=== PATIENT | male | born 1950 | race Caucasian/White ===

== ENCOUNTER 2022-03-08 01:52 | Emergency (ER) | payer MEDICARE, OTHER, SELFPAY ==
[2022-03-08 01:56] VITALS: BP 176/103; PULSE 72; RESP 18; TEMP 36.4; O2SAT 100; BMI 27.4
[2022-03-08 02:16] VITALS: BP 181/95; PULSE 71; RESP 16
[2022-03-08 02:20] LABS: Basophils % 0.3 %; Eosinophils # 0.1 10^3/uL (0.0-0.8); Eosinophils % 1.5 %; Hematocrit 45.3 % (42.0-52.0); Hemoglobin 15.8 g/dL (11.7-16.6); Lymphocytes # 1.7 10^3/uL (0.8-4.8); Lymphocytes % 18.2 %; Mean Corpuscular HGB Conc 34.9 g/dL (30.0-36.0); Mean Corpuscular Hemoglobin 32.1 pg (28.0-34.0); Mean Corpuscular Volume 92.1 fl (80-94); Mean Platelet Volume 9.2 fL (7.4-10.4); Monocytes # 0.6 10^3/uL (0.2-0.9); Neutrophils # 6.65 10^3/uL (1.8-7.7); Neutrophils % 72.8 %; Nucleated Red Blood Cells % 0 %; Platelet Count 238 10^3/cmm (130-400); Red Blood Count 4.92 10^6/uL (4.1-5.3); Red Cell Distribution Width 12.7 % (12.1-15.1); White Blood Count 9.1 10^3/uL (4.0-10.0)
--- NOTE | 2022-03-08 02:32 | ED_ITS ---
HPI - Abdominal Pain General: Chief Complaint: Abdominal Pain Stated Complaint: Back and ABD Pain Time Seen by Provider: 03/08/22 02:09 Source: patient and family History of Present Illness: 71-year-old male complaining of epigastric discomfort, after lying down tonight to go to bed. He is nauseated with the discomfort. No vomiting. No diarrhea. No fever. No shortness of breath. No diaphoresis. He has had this kind of pain before, and stayed in the hospital he says a couple of years ago, with no findings. He states that earlier, there was a line that he could feel along his right upper quadrant, but this is now improved. MD elicited complaint: abdominal pain Pertinent past history: other Onset (ago): hour(s) Pain Consistency: constant Location: Epigastric and RUQ Quality: cramping and stabbing Radiation: back Migration to: no migration Exacerbating factors: movement Relieving factors: nothing Associated Symptoms: Reports nausea; Denies anorexia, belching, bloating, change in bowel habits, chills, diarrhea, dyspepsia, fever(s), hematemesis and vomiting Review of Systems Const: Denies: fever(s) or chills Eyes: Denies: change in vision ENMT: Denies: throat pain Card: Denies: chest pain or palpitations Resp: Denies: dyspnea, productive cough, non-productive cough or wheezing GI: Reports: nausea; Denies: vomiting, hematemesis, diarrhea, bloating, belching or change in bowel habits Skin/Breast: Denies: rash Neuro: Denies: headache(s), weakness in extremities, dizziness or confusion Physical Exam Const: COMMON NORMALS: no acute distress GENERAL APPEARANCE: cooperative; not frail appearing HENMT: COMMON NORMALS: normocephalic and atraumatic HEAD & SCALP: normocephalic and atraumatic Eye: COMMON NORMALS: Equal, round and reactive pupils present and EOMs intact bilaterally PUPIL: Yes Equal, round and reactive pupils present Neck/C-Spine: GENERAL: Yes trachea midline Chest: COMMONS NORMALS: normal inspection of the chest CHEST: Yes Symmetrical chest wall rise Resp: COMMON NORMALS: normal respiratory effort, No use of accessory muscles and clear to auscultation bilaterally AUSCULTATION: clear to auscultation bilaterally Cardio: COMMON NORMALS: regular rate and regular rhythm RATE: regular rate RHYTHM: regular rhythm GI: COMMON NORMALS: Normal to inspection, nondistended, normoactive bowel sounds present and Soft to palpation PALPATION: Yes Soft to palpation and Yes Tenderness to palpation present (GI) Details: RUQ : COMMON NORMALS: Yes normal external exam Extremity: COMMON NORMALS: no pedal edema Neuro: DELVIS COMA SCALE: document GCS findings [place] coma scale eye opening: Spontaneous [place] coma scale verbal response: Orientated [place] coma scale motor response: Obey commands [place] coma scale total score: 15 Course Consultations: Consultation #1: Jennifer, 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 Vital Signs: Vital signs: Vital Signs Temperature 98.1 F 03/08/22 05:41 Pulse Rate 96 03/08/22 05:41 Respiratory Rate 18 03/08/22 05:41 Blood Pressure 126/81 03/08/22 05:41 Pulse Oximetry 99 03/08/22 05:41 Oxygen Delivery Me thod 03/08/22 01:56 MDM - Abdominal Pain Medical Decision Making 71-year-old gentleman with epigastric and right upper quadrant pain and tenderness. He is afebrile. His vitals are good. White blood cell count is 9. His lactic acid is slightly elevated at 2.9. BMP is not remarkable. Urin alysis is significant for urinary tract infection. CT scan is concerning for mild gallbladder wall thickening as is his ultrasound. There is no biliary dilatation. There is no pericholecystic fluid. He is given Zosyn here. His pain is much improved, essentially resolved after Toradol and morphine here. Spoke with surgery. The patient was given the choice of admission versus home and close follow-up. The patient chose home on antibiotics with close follow- up. Lab Data : 03/08/22 02:16 03/08/22 02:16 Labs/Radiology: Radiology Impressions Abdomen/Pelvis CT 03/08/22 03:12 IMPRESSION: Cholelithiasis with small stone in the region of the cystic duct with suggestion of mild gallbladder wall thickening, which may be seen in the setting of acute cholecystitis. ADDENDUM: 03/08/22 0448 THIS REPORT CONTAINS FINDINGS THAT MAY BE CRITICAL TO PATIENT CARE. The findings were verbally communicated via telephone conference with CASTRO LAY at 4:47 AM CDT on 03/08/2022. The findings were acknowledged and understood. Gallbladder Ultrasound 03/08/22 03:12 IMPRESSION: 1. Findings are worrisome for acute cholecystitis. 2. Hepatic steatosis. THIS REPORT CONTAINS FINDINGS THAT MAY BE CRITICAL TO PATIENT CARE. The findings were verbally communicated via telephone conference with CASTRO LAY at 4:47 AM CDT on 03/08/2022. The findings were acknowledged and understood. Laboratory Results WBC 9.1 10^3/uL (4.0-10.0) 03/08/22 02:16 RBC 4.92 10^6/uL (4.1-5.3) 03/08/22 02:16 Hgb 15.8 g/dL (11.7-16.6) 03/08/22 02:16 Hct 45.3 % (42.0-52.0) 03/08/22 02:16 MCV 92.1 fl (80-94) 03/08/22 02:16 MCH 32.1 pg (28.0-34.0) 03/08/22 02:16 MCHC 34.9 g/dL (30.0-36.0) 03/08/22 02:16 RDW 12.7 % (12.1-15.1) 03/08/22 02:16 Plt Count 238 10^3/cmm (130-400) 03/08/22 02:16 MPV 9.2 fL (7.4-10.4) 03/08/22 02:16 Neut % (Auto) 72.8 % 03/08/22 02:16 Lymph % (Auto) 18.2 % 03/08/22 02:16 [place] % (Auto) 7.0 % 03/08/22 02:16 Eos % (Auto) 1.5 % 03/08/22 02:16 Baso % (Auto) 0.3 % 03/08/22 02:16 Neut # (Auto) 6.65 10^3/uL (1.8-7.7) 03/08/22 02:16 Lymph # (Auto) 1.7 10^3/uL (0.8-4.8) 03/08/22 02:16 [place] # (Auto) 0.6 10^3/uL (0.2-0.9) 03/08/22 02:16 Eos # (Auto) 0.1 10^3/uL (0.0-0.8) 03/08/22 02:16 Baso # (Auto) 0.0 10^3/uL (0.0-0.1) 03/08/22 02:16 Nucleated RBC % (auto) 0 % 03/08/22 02:16 Nucleated RBCs # 0.0 /100WBC 03/08/22 02:16 Sodium 141 mmol/L (136-145) 03/08/22 02:16 Potassium 3.8 mmol/L (3.5-5.1) 03/08/22 02:16 Chloride 100 mmol/L (98-107) 03/08/22 02:16 Carbon Dioxide 26 mmol/L (22-29) 03/08/22 02:16 Anion Gap 18.8 (5-19) 03/08/22 02:16 BUN 17 mg/dL (8-23) 03/08/22 02:16 Creatinine 0.9 mg/dL (0.7-1.2) 03/08/22 02:16 GFR Calculation 83.7 mL/min (90-130) L 03/08/22 02:16 Glucose 218 mg/dL (65-115) H 03/08/22 02:16 Calculated Osmolality 300 mOsm/kg (285-295) H 03/08/22 02:16 Lactate 2.9 mmol/L (0.5-2.2) H 03/08/22 02:16 Calcium 9.5 mg/dL (8.5-10.5) 03/08/22 02:16 Total Bilirubin 0.4 mg/dL (0.15-1.2) 03/08/22 02:16 AST 15 U/L (0-40) 03/08/22 02:16 ALT 21 U/L (0-41) 03/08/22 02:16 Alkaline Phosphatase 95 U/L (40-130) 03/08/22 02:16 C-Reactive Protein 3.0 mg/L (0.0-4.9) 03/08/22 02:16 Total Protein 7.7 g/dL (6.6-8.7) 03/08/22 02:16 Albumin 4.5 g/dL (3.5-5.2) 03/08/22 02:16 Globulin 3.2 g/dL (1.3-4.6) 03/08/22 02:16 Lipase 72 U/L (13-60) H 03/08/22 02:16 Urine Color Yellow (Yellow) 03/08/22 02:40 Urine Appearance Cloudy (CLEAR) A 03/08/22 02:40 Urine pH 5 (5-7) 03/08/22 02:40 Ur Specific [place] 1.030 (1.005-1.030) 03/08/22 02:40 Urine Protein 1+ (Negative) H 03/08/22 02:40 Urine Glucose (UA) 2+ (Normal) H 03/08/22 02:40 Urine Ketones 1+ (Negative) H 03/08/22 02:40 Urine Blood 2+ (Negative) H 03/08/22 02:40 Urine Nitrate Positive (Negative) H 03/08/22 02:40 Urine Bilirubin Neg (Negative) 03/08/22 02:40 Urine Urobilinogen Neg mg/dL (Negative) 03/08/22 02:40 Ur Leukocyte Esterase 2+ (Negative) H 03/08/22 02:40 Urine RBC 5-10 /hpf (0-2) H 03/08/22 02:40 Urine WBC 80-100 /hpf (0-5) H 03/08/22 02:40 Ur Squamous Epith Cells 5-10 /hpf (0-5) H 03/08/22 02:40 Amorphous Sediment Not Reportable 03/08/22 02:40 Urine Bacteria 2+ /hpf (NONE) H 03/08/22 02:40 Discharge Plan Discharge Patient Disposition: Home Clinical Impression: Acute calculous cholecystitis, Urinary tract infection Condition: Stable Prescriptions: New amoxicillin-pot clavulanate 875-125 mg tablet 1 tab PO BID Qty: 20 0RF hydrocodone-acetaminophen 5-325 mg tablet 1 tab PO Q8H PRN (Reason: pain) Qty: 7 0RF ondansetron 4 mg film 4 mg PO DAILY PRN (Reason: nausea and vomiting) Qty: 10 0RF Discharge Orders: Discharge ED (Routine); Ordered 03/08/22 Ordered By: Castro Lay Referrals: Philip Rodriguez MD [Physician] - 1-3 days Dominic Car MD [Primary Care Provider] - Patient Instructions: Opioid Safety, Pain Management Activity Restrictions/Additional Instructions: Return for fever greater than 100, worsening pain despite treatment, worsening mental status, vomiting liquids or medications, any other concerning symptoms. You should get a call from case management regarding a follow-up appointment with surgery this coming week. Coding Level of Care Code ED Counseling Center Director for Joseph Fwmarilyn Exam Comprehensive
[2022-03-08 02:39] LABS: Lactate (Lactic Acid level) 2.9 mmol/L (0.5-2.2)
[2022-03-08 02:40] LABS: Alanine Aminotransferase 21 U/L (0-41); Albumin Level 4.5 g/dL (3.5-5.2); Alkaline Phosphatase 95 U/L (40-130); Anion Gap 18.8 (5-19); Aspartate Amino Transferase 15 U/L (0-40); Blood Urea Nitrogen 17 mg/dL (8-23); Calcium 9.5 mg/dL (8.5-10.5); Carbon Dioxide 26 mmol/L (22-29); Chloride 100 mmol/L (98-107); Creatinine Clr Calc Pharmacy 70.7261; Globulin 3.2 g/dL (1.3-4.6); Glomerular Filtration Rate 83.7 mL/min (90-130); Glucose 218 mg/dL (65-115); Lipase 72 U/L (13-60); Osmolality Calculated 300 mOsm/kg (285-295); Potassium 3.8 mmol/L (3.5-5.1); Sodium 141 mmol/L (136-145); Total Bilirubin 0.4 mg/dL (0.15-1.2); Total Protein 7.7 g/dL (6.6-8.7)
[2022-03-08] MEDS: ondansetron 2 mg/ML SDV 2 mL 4 MG IVP (02:40)
[2022-03-08] MEDS: morphine 4 mg/mL SDV 1 mL IVP (02:40)
--- NOTE | 2022-03-08 02:40 | PC.NURSE ---
GI cocktail medications unavailable in [facility], pharmacy notified, states that after mixing IV medications for inpatient she will come to this dept and [facility] med drawer. dr de los santos aware.
--- NOTE | 2022-03-08 03:12 | CTR_ITS ---
PROCEDURE INFORMATION: Exam: CT Abdomen And Pelvis With Contrast Exam date and time: 03/08/2022 3:26 AM Age: 71 years old Clinical indication: Abdominal pain; Prior surgery; Surgery date: 6+ months; Surgery type: Hernia repair; Patient HX: Ruq pain, nausea; Additional info: Ruq epigastric pain TECHNIQUE: Imaging protocol: Computed tomography of the abdomen and pelvis with contrast. Radiation optimization: All CT scans at this facility use at least one of these dose optimization techniques: automated exposure control; mA and/or kV adjustment per patient size (includes targeted exams where dose is matched to clinical indication); or iterative reconstruction. Contrast material: OMNI 350; Contrast volume: 100 ml; Contrast route: INTRAVENOUS (IV); COMPARISON: CT abdomen pelvis w con* [id number] 11/15/2018 9:35 PM RADIATION DOSE METRICS: Total DLP (mGy-cm): 543.9 FINDINGS: Liver: Normal. No mass. Gallbladder and bile ducts: Cholelithiasis with small stone in the region of the cystic duct. There appears to be mild gallbladder thickening. Pancreas: Normal. No ductal dilation. Spleen: Normal. No splenomegaly. Adrenal glands: Normal. No mass. Kidneys and ureters: Subcentimeter low-density lesions in the kidneys are too small to characterize, though statistically benign. No hydronephrosis. Stomach and bowel: Unremarkable. No obstruction. No mucosal thickening. Appendix: No evidence of appendicitis. Intraperitoneal space: Unremarkable. No free air. No significant fluid collection. Vasculature: Moderate burden of atherosclerotic plaque in the abdominal aorta and branch vessels. No aneurysm. Lymph nodes: Unremarkable. No enlarged lymph nodes. Urinary bladder: Circumferential bladder wall thickening. Reproductive: Unremarkable as visualized. Bones/joints: Flowing osteophytes along the anterior thoracic vertebral bodies, consistent with diffuse idiopathic skeletal hyperostosis (DISH). Soft tissues: Tiny fat containing umbilical hernia. CT/CT abdomen pelvis w con* [id number] IMPRESSION: Cholelithiasis with small stone in the region of the cystic duct with suggestion of mild gallbladder wall thickening, which may be seen in the setting of acute cholecystitis.
--- NOTE | 2022-03-08 03:12 | USR_ITS ---
PROCEDURE INFORMATION: Exam: US Abdomen, Limited; Right Upper Quadrant Exam date and time: 03/08/2022 4:12 AM Age: 71 years old Clinical indication: Abdominal pain; Acute; Additional info: Ruq and epigastric pain TECHNIQUE: Imaging protocol: Real time ultrasound of the abdomen with image documentation. Limited exam focused on the right upper quadrant. COMPARISON: CT abdomen pelvis w con* [id number] 03/08/2022 3:26 AM FINDINGS: Liver: Increased echogenicity of the hepatic parenchyma. No masses. The liver measures up to 17.6 cm. Gallbladder: Stones and sludge are seen in the gallbladder lumen. There is borderline gallbladder wall thickening. No sonographic Chopra's sign was reported. Biliary ducts: The common bile duct measures up to 4 mm. No biliary dilation. Pancreas: Limited visualization of the pancreas. Visualized portions appear unremarkable. Right kidney: The right kidney measures up to 11.3 cm in length. No hydronephrosis. No masses. Aorta: The aorta appears within normal limits. Inferior vena cava: The IVC appears within normal limits. Portal venous: Patent main portal vein with antegrade flow. US/US gall bladder [id number] IMPRESSION: 1. Findings are worrisome for acute cholecystitis. 2. Hepatic steatosis. THIS REPORT CONTAINS FINDINGS THAT MAY BE CRITICAL TO PATIENT CARE. The findings were verbally communicated via telephone conference with DANIEL ARNOLD at 4:47 AM CDT on 03/08/2022. The findings were acknowledged and understood.
[2022-03-08] MEDS: lidocaine 2% viscous 15 ML, aluminum-mag hydrox-simethicon 30 ML, sucralfate oral liq 1 GM PO (03:15)
[2022-03-08 03:26] VITALS: BP 146/78; RESP 15
[2022-03-08] MEDS: iohexol 350 mg/mL 100 mL Btl IV (03:35)
[2022-03-08 03:51] LABS: Urine Color Yellow (Yellow)
[2022-03-08 03:52] LABS: Add Urine Microscopic? YES; Bilirubin Urine Neg (Negative); Blood Urine 2+ (Negative); Glucose Urine UA 2+ (Normal); Ketones Urine 1+ (Negative); Leukocyte Esterase Urine 2+ (Negative); Nitrate Urine Positive (Negative); Protein Urine 1+ (Negative); Urine Appearance Cloudy (CLEAR); Urobilinogen Urine Neg (Negative); pH Urine 5 (5-7)
[2022-03-08 03:54] LABS: Add Urine Culture? Yes; Bacteria Urine 2+ /hpf; WBC Urine 80-100 /hpf (0-5)
[2022-03-08 04:57] VITALS: BP 136/73; PULSE 96; RESP 17; O2SAT 97
[2022-03-08] MEDS: piperacillin-tazobactam 3.375 GM in sodium chloride 0.9% (plus) 50 ML IV (04:57)
[2022-03-08 05:33] VITALS: BP 126/81; PULSE 92; RESP 16; O2SAT 97
[2022-03-08 05:41] VITALS: BP 126/81; PULSE 96; RESP 18; TEMP 36.7; O2SAT 99
--- NOTE | 2022-03-10 12:58 | DCPLANNER ---
Addendum entered by Cecile Costa 05/14/22 14:01: Patient had a follow up appointment scheduled with Dr. Willoughby - patient did attend appointment. Original Note: coffee shop manager had message to schedule a follow up appointment for patient with Dr. Willoughby. coffee shop manager faxed patients information to the office of Dr. Willoughby. Patients information will be reviewed, clinic will call patient with appointment information.
== END 2022-03-08 05:43 | disposition home or self-care (01) ==
PROVIDERS: Emergency Provider Emergency Medicine; PCP Family Medicine
DX: K80.00 Calculus of gallbladder with acute cholecystitis without obstruction (principal); N39.0 Urinary tract infection, site not specified
CPT/HCPCS: 74177; 76705; 80053; 81001; 83605; 83690; 85025; 86140; 87077; 87086; 87186; 96365; 96375; 99285; J2270; J2405; J2543; Q9967

== ENCOUNTER 2023-06-19 14:29 | Observation (INO) | payer MEDICARE, OTHER, SELFPAY ==
[2023-06-19] VITALS (7 sets, daily range): BP systolic 124–152; BP diastolic 72–84; PULSE 64–82; RESP 14–16; TEMP 36.4–36.9; O2SAT 98–100; BMI 27.6
--- NOTE | 2023-06-19 06:17 | USR_ITS ---
[facility] Final Radiology Report with Addendum Call: [phone] assistance Online chat: [email or web address] Name: VENTURA TORRES Age: 73Years M Date: 06/19/2023 SSN: -- : [id number] Study: US DUPLEX EXTREM VEINS UNILAT OR LTD Requesting Physician: VENTURA STARK Images: [id number] Provided Clinical History: lower leg swelling-right Addendum created by Guillermo Duncan MD on 06/19/2023 5:44 PM Central Time ([place] & [place]): COMMENT: THIS REPORT CONTAINS FINDINGS THAT MAY BE CRITICAL TO PATIENT CARE. The exam findings were verbally communicated by me to VENTURA STARK via telephone conference at 5:44 PM UTILITY BILL COLLECTION CLERK on 06/19/2023. The findings were acknowledged and understood. Initial Report created on 06/19/2023 5:35 PM Central Time ([place] & [place]): PROCEDURE INFORMATION: Exam: US Duplex Right Lower Extremity Veins, Limited Exam date and time: 06/19/2023 5:10 PM Age: 73 years old Clinical indication: Pain; Leg, lower; Right; Additional info: Lower leg swelling-right TECHNIQUE: Imaging protocol: Real-time duplex ultrasound of the right extremity with 2-D marte scale, color Doppler flow and spectral waveform analysis including responses to compression and other maneuvers (when performed) with image documentation. Limited exam was focused on the right lower extremity veins. COMPARISON: CT abdomen pelvis w con* [id number] 03/08/2022 3:26 AM FINDINGS: Right deep veins: Examination of the deep vein system in the right leg demonstrates thrombosis extending from the common femoral vein down through the popliteal vein. Superficial veins: Unremarkable. Saphenofemoral junction is patent without thrombus. Soft tissues: Unremarkable. IMPRESSION: DVT of the right leg Thank you for allowing us to participate in the care of your patient. Dictated and Authenticated by: Guillermo Duncan MD 06/19/2023 5:35 PM Central Time ([place] & [place]) MTDD
--- NOTE | 2023-06-19 16:32 | ED_ITS ---
HPI - Extremity Problem 2 General: Chief complaint: Extremity Problem,Nontraumatic Stated complaint: swollen lower leg, right Time Seen by Provider: 06/19/23 15:51 History of Present Illness: 73-year-old male presents to the emergen cy department with complaints of swelling to the right calf that started approximately 5 days ago. He states that he does have a dull aching pain that he rates as a 2 out of 10 at present. He states that the pain is not any worse when he walks. He states he did notice some swelling behind his right knee and then noticed swelling to the right lower extremity. He states he has not taken any long trips and denies any known trauma or recent injury. He states he is a diabetic. Patient states on 06/17/2023 he was seen by the urgent care and advised to start taking a 325 mg aspirin daily. Patient states he does have an appointment with his primary care provider in 3 days. Review of Systems 2 General: Reports: 10 or more systems reviewed and unremarkable except in HPI and below Musc: Reports: extremity swelling (Right lower leg) Physical Exam 2 Narrative: EXAM NARRATIVE: Constitutional: the patient appears well nourished and of normal development. Vital signs as documented. No acute distress at present. Alert and oriented-to person, place, time and situation. Head, eyes, ears, nose, mouth, throat: Normocephalic, atraumatic. Pupils-equal, round, reactive to light. No scleral icterus. Normal-appearing external ears. Normal appearing nasal turbinates, no drainage. No obvious oral lesions, posterior oropharynx without erythema or exudates. Neck: Supple, trachea is midline, no lymphadenopathy, no jugular venous distension, thyromegaly, or carotid bruits. Carotid upstrokes are brisk bilaterally. Lungs: clear to auscultation to all lung piedra. Symmetrical rise and fall of chest, no obvious signs of increased work of breathing at present. Cardiac: Regular rate and rhythm, positive S1, S2. No murmurs, rubs or gallops that I can appreciate Abdomen: Soft, non-tender to palpation, normal active bowel sounds to all quadrants. No palpable masses, no organomegaly and abdominal bruits. Extremities: 2+ pulses in the upper extremities that are equal bilaterally, 2+ pulses in the lower extremities that are equal bilaterally. Right lower leg does have 1+ pitting edema. His calf is nontender to palpation. Plantarflexion and dorsiflexion of the lower extremities is without pain. Moves all extremities well, sensation to all extremities are noted. Patient does have onychomycosis noted to the nails on his bilateral feet. Skin: Warm, dry, intact. Course 2 Vital Signs: Vital signs: Vital Signs Temperature 97.5 F L 06/19/23 14:45 Pulse Rate 82 06/19/23 17:35 Respiratory Rate 14 06/19/23 17:35 Blood Pressure 149/76 06/19/23 15:57 Pulse Oximetry 100 06/19/23 17:35 Oxygen Delivery Me thod Room Air 06/19/23 17:35 MDM - Extremity (Nontraumatic) Medical Decision Making 73-year-old male presents with right lower leg swelling I will obtain a CBC, CMP, D-dimer and ultrasound of the right lower extremity to rule out DVT. Given the patient's longstanding diabetes and onychomycosis I will provide him contact information for podiatry so that he may follow-up with them to decrease the risk of traumatic injury and infection given his increased risk of being a diabetic. Medical Records I reviewed the patient's medical records. Lab Data 06/19/23 17:26 06/19/23 17:26 Laboratory Results WBC 5.87 10^3/uL (3.29-11.43) 06/19/23 17: RBC 4.29 10^6/uL (3.85-5.65) 06/19/23 17: Hgb 13.80 g/dL (11.27-16.99) 06/19/23 17: Hct 38.2 % (37-53) 06/19/23 17: MCV 89.0 fl (82-101) 06/19/23 17: MCH 32.2 pg (27-33) 06/19/23: MCHC 36.1 g/dL (30-55) 06/19/23 17: RDW 12.5 % (12.1-15.1) 06/19/23 17: Plt Count 190 10^3/cmm (157-399) 06/19/23 17: MPV 9.6 fL (7.4-10.4) 06/19/23: Neut % (Auto) 55.0 % 06/19/23 17:26 Lymph % (Auto) 31.0 % 06/19/23 17:26 [place] % (Auto) 11.1 % 06/19/23 17:26 Eos % (Auto) 2.4 % 06/19/23 17:26 Baso % (Auto) 0.3 % 06/19/23 17:26 Neut # (Auto) 3.23 10^3/uL (1.8-7.7) 06/19/23 17: Lymph # (Auto) 1.8 10^3/uL (0.8-4.8) 06/19/23 17:26 [place] # (Auto) 0.7 10^3/uL (0.2-0.9) 06/19/23 17: Eos # (Auto) 0.1 10^3/uL (0.0-0.8) 06/19/23 17: Baso # (Auto) 0.0 10^3/uL (0.0-0.1) 06/19/23 17: Nucleated RBC % (auto) 0 % 06/19/23 17: Nucleated RBCs # 0.0 /100WBC 06/19/23 17: PT 13.90 SECONDS (12.1-14.9) 06/19/23 17: INR 1.04 (0.8-1.2) 06/19/23 17: APTT 32.8 SECONDS (23.9-36.7) 06/19/23 17:26 D-Dimer 2.23 ug/mLFEU (0-0.59) H 06/19/23 17:26 Sodium 138 mmol/L (136-145) 06/19/23 17:26 Potassium 4.1 mmol/L (3.5-5.1) 06/19/23 17:26 Chloride 102 mmol/L (98-107) 06/19/23 17:26 Carbon Dioxide 25 mmol/L (22-29) 06/19/23 17:26 Anion Gap 15.1 (5-19) 06/19/23 17:26 BUN 15 mg/dL (8-23) 06/19/23 17:26 Creatinine 0.8 mg/dL (0.7-1.2) 06/19/23 17:26 GFR Calculation Not Reportable 06/19/23 17:26 Glucose 291 mg/dL (65-115) H 06/19/23 17:26 Calculated Osmolality 298 mOsm/kg (285-295) H 06/19/23 17:26 Calcium 9.2 mg/dL (8.5-10.5) 06/19/23 17:26 Total Bilirubin 0.3 mg/dL (0.15-1.2) 06/19/23 17:26 AST 13 U/L (0-40) 06/19/23 17:26 ALT 14 U/L (0-41) 06/19/23 17:26 Alkaline Phosphatase 92 U/L (40-130) 06/19/23 17:26 Troponin T Baseline 13 ng/L (0-15) 06/19/23 17:26 NT-Pro-B Natriuret Pep 71 pg/mL (0-125) 06/19/23 17:26 Total Protein 6.9 g/dL (6.6-8.7) 06/19/23 17:26 Albumin 4.1 g/dL (3.5-5.2) 06/19/23 17:26 Globulin 2.8 g/dL (1.3-4.6) 06/19/23 17:26 All radiology interpretation(s) finalized by discharge Discharge Plan Discharge Patient Disposition: Admitted As Inpatient Clinical Impression: DVT (deep venous thrombosis), Lower extremity edema, Onychomycosis due to dermatophyte Condition: Stable Prescriptions: No Action metformin 1,000 mg tablet extended release 24 hr 1,000 mg PO BID glipizide 10 mg tablet extended release 24hr 20 mg PO DAILY simvastatin 20 mg tablet 20 mg PO DAILY losartan 100 mg tablet 100 mg PO DAILY tamsulosin 0.4 mg capsule 0.4 mg PO DAILY dorzolamide-timolol 22.3-6.8 mg/mL drops 1 drp ophthalmic (eye) BID Referrals: Rich Villanueva DPM [Physician] - Dominic Car MD [Primary Care Provider] - Discharge Diet: Advance as tolerated Discharge Activity: Resume usual activity Patient Instructions: Opioid Safety, Pain Management Activity Restrictions/Additional Instructions: Activity Restrictions/Additional Instructions: Thank you for choosing [facility] for your healthcare needs today. Please realize that you were seen in the Emergency Department and that we are providing you with an emergency medical screening exam and this may not be a complete and all inclusive of all the testing and or medical work-up that you may need to determine your ailment or severity of your illness. It is very important that you follow-up as instructed with your Primary care provider or Specialist for additional evaluation and to discuss your medical treatment plan. You may return to the Emergency Department should you have concerns or if your condition changes or worsens in any way. Coding Level of Care Code ED Offset Lithographic Press Setter for Joseph Driscoll
[2023-06-19] MEDS: enoxaparin 80 mg/0.8 mL Syringe SUBCUT (17:42)
--- NOTE | 2023-06-19 17:45 | P.HP_ITS ---
Providers/Chief Complaint 2 Primary Care Provider: Dominic Car MD Chief Complaint: swollen lower leg, right History of Present Illness Gabo Headley is a 73 year old male with history of diabetes, sent over from the urgent care clinic for right lower extremity swelling, he has been diagnosed with DVT workup is pending in the ER, patient is hemodynamically stable. Patient endorses to center lifestyle, no previous history of cancer, no chest pain or shortness of breath, PCP recommended ultrasound on outpatient basis however family did not want to wait until that long that is why they came to the ER for further evaluation. He is hemodynamic stable no right heart strain symptoms troponin negative, BNP unremarkable Review of Systems 2 Const: Denies: fever(s) Eyes: Denies: change in vision ENMT: Denies: throat pain Card: Denies: chest pain Resp: Denies: dyspnea Medications/Allergies Home Medications Medication Instructions Recorded Confirmed Last Taken Type dorzolamide 22.3 mg-timolol 6.8 1 drp ophthalmic (eye) BID 06/17/23 06/20/23 Unknown History mg/mL eye drops glipizide 10 mg tablet, extended 20 mg PO QAM 06/17/23 06/20/23 Unknown History release 24 hr losartan 100 mg tablet 100 mg PO QAM 06/17/23 06/20/23 Unknown History simvastatin 20 mg tablet 20 mg PO BEDTIME 06/17/23 06/20/23 Unknown History tamsulosin 0.4 mg capsule 0.4 mg PO QAM 06/17/23 06/20/23 Unknown History aspirin 81 mg tablet,delayed 81 mg PO QPM 06/20/23 06/20/23 Unknown History release hydrocodone 5 mg-acetaminophen 325 1 tab PO Q6H PRN Pain 06/20/23 06/20/23 Unknown History mg tablet metformin 500 mg tablet,extended 1,000 mg PO BID 06/20/23 06/20/23 Unknown History release 24 hr Allergies Allergy/AdvReac Type Severity Reaction Status Date / Time No Known Allergies Allergy Verified 06/20/23 09:25 Vitals/I&O/Wt Last Vital Signs Temp 97.5 F L 06/19/23 14:45 Pulse 82 06/19/23 17:35 Resp 14 06/19/23 17:35 BP 149/76 06/19/23 15:57 Pulse Ox 100 06/19/23 17:35 O2 Del Method Room Air 06/19/23 17:35 Weight last 48 hrs Weight 72.575 kg Physical Exam 2 Narrative: Onychomycosis Currently on room air Nonfocal neuroexam GCS 15 Pleasant cooperative Right leg swelling GCS 15 DVT related swelling and hyperemia S1, S2 Currently on room air Data 06/19/23 17:26 06/20/23 05:59 A&P Assessment and plan (1) Lower extremity edema: (2) DVT (deep venous thrombosis): Plan Acute DVT Low PE Will request echo No hemodynamic instability I will start him on therapeutic Lovenox Will discharge on Eliquis tomorrow Patient is diabetic Attestations 2 Medical Necessity Statement*: Anticipating discharge within 40 Diagnoses Lower extremity edema R60.0 DVT (deep venous thrombosis) I82.409
[2023-06-19 17:47] LABS: Basophils % 0.3 %; Eosinophils # 0.1 10^3/uL (0.0-0.8); Eosinophils % 2.4 %; Hematocrit 38.2 % (37-53); Lymphocytes # 1.8 10^3/uL (0.8-4.8); Mean Corpuscular HGB Conc 36.1 g/dL (30-55); Mean Corpuscular Hemoglobin 32.2 pg (27-33); Mean Platelet Volume 9.6 fL (7.4-10.4); Monocytes # 0.7 10^3/uL (0.2-0.9); Monocytes % 11.1 %; Neutrophils # 3.23 10^3/uL (1.8-7.7); Nucleated Red Blood Cells % 0 %; Platelet Count 190 10^3/cmm (157-399); Red Blood Count 4.29 10^6/uL (3.85-5.65); Red Cell Distribution Width 12.5 % (12.1-15.1); White Blood Count 5.87 10^3/uL (3.29-11.43)
--- NOTE | 2023-06-19 17:57 | ECG_ITS ---
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 Measurements Intervals [place] Rate: 68 P: 82 ND: 239 QRS: 39 QRSD: 129 T: 49 QT: 388 QTc: 414 Interpretive Statements SINUS RHYTHM WITH FIRST DEGREE AV BLOCK RIGHT BUNDLE BRANCH BLOCK [120+ ms QRS DURATION, UPRIGHT V1, 40+ ms S IN I/aVL/V4/V5/V6] Compared to ECG 11/16/2018 03:42:19 First degree AV block now present Right bundle-branch block now present Electronically Signed On 06-20-2023 8:31:09 CONCRETE FORM SETTER AND FINISHER by Zhen Yepez M.D. [id number]
[2023-06-19 18:01] LABS: INR 1.04 (0.8-1.2); Partial Thromboplastin Time 32.8 SECONDS (23.9-36.7)
[2023-06-19 18:04] LABS: D Dimer 2.23 ug/mLFEU (0-0.59)
[2023-06-19 18:13] LABS: Troponin(5th) Baseline 13 ng/L (0-15)
[2023-06-19 18:23] LABS: Alanine Aminotransferase 14 U/L (0-41); Albumin Level 4.1 g/dL (3.5-5.2); Alkaline Phosphatase 92 U/L (40-130); Anion Gap 15.1 (5-19); Aspartate Amino Transferase 13 U/L (0-40); Blood Urea Nitrogen 15 mg/dL (8-23); Calcium 9.2 mg/dL (8.5-10.5); Carbon Dioxide 25 mmol/L (22-29); Chloride 102 mmol/L (98-107); Creatinine Clr Calc Pharmacy 77.3255; Globulin 2.8 g/dL (1.3-4.6); Glucose 291 mg/dL (65-115); NT Pro B Type Natriuretic Pept 71 pg/mL (0-125); Osmolality Calculated 298 mOsm/kg (285-295); Potassium 4.1 mmol/L (3.5-5.1); Sodium 138 mmol/L (136-145); Total Bilirubin 0.3 mg/dL (0.15-1.2); Total Protein 6.9 g/dL (6.6-8.7)
[2023-06-19 20:11] LABS: Troponin 5 2HR 15.39 ng/L (0-15); Troponin 5 2HR Delta 2.39 ABS# (0-10)
[2023-06-19 20:47] LABS: Vitamin B12 150 pg/mL (232-1245)
[2023-06-19 21:07] LABS: Glucose Point of Care 158 mg/dL (70-110)
[2023-06-19] MEDS: insulin lispro 100 unit/1 mL SUBCUT (21:41)
[2023-06-19 22:04] LABS: Estmated Average Glucose 177; Hemoglobin A1C 7.8 % (4.0-6.0)
[2023-06-20 03:45] VITALS: BP 144/78; PULSE 66; RESP 16; TEMP 36.7; O2SAT 96
--- NOTE | 2023-06-20 06:00 | USCV_ITS ---
Fang Gabo Age: 73 Gender: M : 1950 Exam Date: 06/20/2023 10:14 Ordering Phys: Juan David MD Technologist: Ramiro Guillaume Exam Location: [facility] [place] Indication: pe BP: 158 / 84 HR: 64 Rhythm: Sinus Technical Quality: Poor MEASUREMENTS (Male / Female) Normal Values 2D ECHO LVOT Diameter 2.0 cm LV Ejection Fraction MOD 2C 71.7 % LV Ejection Fraction 2C AL 71.1 % LA Diameter 3.0 cm LA Width 3.5 cm LA Height 3.7 cm RA Width 2.4 cm RA Height 4.3 cm Aorta at Sinotubular Diameter 2.2 cm IVC Diameter 1.3 cm M-MODE Aortic Annulus Diameter 3.5 cm MV E Point Septal Separation 0.4 cm DOPPLER AV Peak Velocity 135.0 cm/s LVOT Peak Velocity 100.0 cm/s AV Area Cont Eq vti 2.7 cm squared AV Area Cont Eq pk 2.4 cm squared MV Peak Velocity 97.0 cm/s MV Area PHT 5.0 cm squared Mitral E to A Ratio 0.7 MV E' Velocity 32.0 cm/s Mitral E to MV E' Ratio 6.0 Mitral E to LV E' Lateral Ratio 6.8 Mitral E to LV E' Septal Ratio 5.5 TR Peak Velocity 229.6 cm/s TR Peak Gradient 21.1 mmHg TR Mean Velocity 183.2 cm/s TR Mean Gradient 13.8 mmHg TR Velocity Time Integral 63.7 cm Right Atrial Pressure 3.0 mmHg Pulmonary Artery Systolic Pressu 24.1 mmHg PV Peak Velocity 71.0 cm/s RV Acceleration Time 0.1 s RV Ejection Time 0.4 s RV AcT/ET 0.3 FINDINGS Left Ventricle Poor quality study.normal left ventricular size, systolic function and wall thickness, with no regional wall motion abnormalities. Grade I/IV diastolic dysfunction (abnormal relaxation filling pattern), normal to mildly elevated filling pressures. Left ventricular ejection fraction is estimated at 60 %. Right Ventricle Normal right ventricular size and systolic function. Normal right ventricular systolic pressure. Right Atrium The right atrium is normal in size. Left Atrium The left atrium is normal in size. Mitral Valve Mitral valve not well visualized. No obvious regurgitation or stenosis Aortic Valve Aortic valve not well-seen. No obvious regurgitation or stenosis. Tricuspid Valve Tricuspid valve not well-seen. Pulmonic Valve Pulmonic valve not well visualized. Pericardium Normal pericardium without effusion. Aorta Aorta not well visualized. IVC Inferior vena cava not visualized. CONCLUSIONS Poor quality study.normal left ventricular size, systolic function and wall thickness, with no regional wall motion abnormalities. Grade I/IV diastolic dysfunction (abnormal relaxation filling pattern), normal to mildly elevated filling pressures. Left ventricular ejection fraction is estimated at 60 %. There are no prior echocardiogram studies to compare. Dr. Zhen Yepez MD (Electronically Signed) Final Date: 21 June 2023 07:06 S
[2023-06-20] MEDS: enoxaparin 80 mg/0.8 mL Syringe 70 MG SUBCUT (06:19)
[2023-06-20 06:36] LABS: Glucose Point of Care 161 mg/dL (70-110)
[2023-06-20 06:46] LABS: Blood Urea Nitrogen 13 mg/dL (8-23); Calcium 8.9 mg/dL (8.5-10.5); Carbon Dioxide 25 mmol/L (22-29); Chloride 105 mmol/L (98-107); Glucose 168 mg/dL (65-115); Magnesium 1.6 mg/dL (1.7-2.3); Osmolality Calculated 292 mOsm/kg (285-295); Sodium 139 mmol/L (136-145)
[2023-06-20 06:54] LABS: Anion Gap 12.9 (5-19); Potassium 3.9 mmol/L (3.5-5.1)
[2023-06-20 07:34] VITALS: BP 158/84; PULSE 61; RESP 16; TEMP 36.5; O2SAT 99
[2023-06-20] MEDS: insulin lispro 100 unit/1 mL SUBCUT ×2 (08:10→12:11)
[2023-06-20 09:23] VITALS: BP 158/84
[2023-06-20] MEDS: tamsulosin 0.4 mg Capsule PO (09:23)
[2023-06-20] MEDS: losartan 50 mg Tablet 100 MG PO (09:23)
--- NOTE | 2023-06-20 11:56 | P.DS_ITS ---
Discharge Providers Date of Admission: 06/19/23 17:26 Date of Discharge: June 20, 2023 Attending Provider at Admission: Juan David MD Attending Provider at Discharge: Juan David MD Primary Care Provider: Dominic Car MD Diagnoses at Discharge Discharge Diagnosis (1) Lower extremity edema: Status: Acute (2) DVT (deep venous thrombosis): Status: Acute Qualifiers: Affected thrombotic vein of extremity: peroneal Chronicity: acute DVT location: lower extremity Laterality: right Qualified Code(s): I82.451 - Acute embolism and thrombosis of right peroneal vein Reason for Visit Reason for Visit: swollen lower leg, right Hospital Course Hospital Course 73-year male who was diagnosed with right leg DVT, has been leading sedentary lifestyle, hemoglobin A1c is 10.8, magnesium is 1.6, no history of cancer, vitamin B12 extremely well, will request MMA and homocystine, I will give him Eliquis at the time of discharge 10 mg twice daily for 7 days then he may switch to 5 mg twice daily he will need anticoagulation for at least 6 months before another evaluation I will have his PCP decide whether he would need lifelong versus limited anticoagulation at this point. Will give him vitamin B12 supplementation as well Physical Exam Narrative: Awake and alert GCS 15 No active pain Hemodynamic stable Nonfocal neuroexam Pleasant cooperative Discharge Data Studies Completed and Pending Pending at discharge Category Date Time Status CV. echo complete* [id number] Routine Ultrasound 06/20/23 06:00 Taken US venous duplex lower extremity RT [CV venous duplex Ultrasound 06/19/23 17:[place] [id number]] Stat Laboratory Results WBC 5.87 10^3/uL (3.29-11.43) 06/19/23 17:26 RBC 4.29 10^6/uL (3.85-5.65) 06/19/23 17:26 Hgb 13.80 g/dL (11.27-16.99) 06/19/23 17:26 Hct 38.2 % (37-53) 06/19/23 17:26 MCV 89.0 fl (82-101) 06/19/23 17:26 MCH 32.2 pg (27-33) 06/19/23 17:26 MCHC 36.1 g/dL (30-55) 06/19/23 17:26 RDW 12.5 % (12.1-15.1) 06/19/23 17: Plt Count 190 10^3/cmm (157-399) 06/19/23 17: MPV 9.6 fL (7.4-10.4) 06/19/23 17: Neut % (Auto) 55.0 % 06/19/23 17: Lymph % (Auto) 31.0 % 06/19/23 17: [place] % (Auto) 11.1 % 06/19/23 17: Eos % (Auto) 2.4 % 06/19/23 17: Baso % (Auto) 0.3 % 06/19/23: Neut # (Auto) 3.23 10^3/uL (1.8-7.7) 06/19/23 17: Lymph # (Auto) 1.8 10^3/uL (0.8-4.8) 06/19/23 17: [place] # (Auto) 0.7 10^3/uL (0.2-0.9) 06/19/23 17: Eos # (Auto) 0.1 10^3/uL (0.0-0.8) 06/19/23 17: Baso # (Auto) 0.0 10^3/uL (0.0-0.1) 06/19/23 17: Nucleated RBC % (auto) 0 % 06/19/23: Nucleated RBCs # 0.0 /100WBC 06/19/23 17: PT 13.90 SECONDS (12.1-14.9) 06/19/23 17: INR 1.04 (0.8-1.2) 06/19/23 17: APTT 32.8 SECONDS (23.9-36.7) 06/19/23 17: D-Dimer 2.23 ug/mLFEU (0-0.59) H 06/19/23 17: Sodium 139 mmol/L (136-145) 06/20/23 05:59 Potassium 3.9 mmol/L (3.5-5.1) 06/20/23 05:59 Chloride 105 mmol/L (98-107) 06/20/23 05:59 Carbon Dioxide 25 mmol/L (22-29) 06/20/23 05:59 Anion Gap 12.9 (5-19) 06/20/23 05:59 BUN 13 mg/dL (8-23) 06/20/23 05:59 Creatinine 0.7 mg/dL (0.7-1.2) 06/20/23 05:59 GFR Calculation Not Reportable 06/20/23 05:59 Glucose 168 mg/dL (65-115) H 06/20/23 05:59 POC Glucose 161 mg/dL (70-110) H 06/20/23 06:27 Estimat Average Glucose 177 06/19/23 17:26 Hemoglobin A1c 7.8 % (4.0-6.0) H 06/19/23 17:26 Calculated Osmolality 292 mOsm/kg (285-295) 06/20/23 05:59 Calcium 8.9 mg/dL (8.5-10.5) 06/20/23 05:59 Magnesium 1.6 mg/dL (1.7-2.3) L 06/20/23 05:59 Total Bilirubin 0.3 mg/dL (0.15-1.2) 06/19/23 17:26 AST 13 U/L (0-40) 06/19/23 17:26 ALT 14 U/L (0-41) 06/19/23 17:26 Alkaline Phosphatase 92 U/L (40-130) 06/19/23 17:26 Troponin T Baseline 13 ng/L (0-15) 06/19/23 17:26 Troponin T 120 Minute 15.39 ng/L (0-15) H 06/19/23 19:35 Delta Troponin T 2.39 ABS# (0-10) 06/19/23 19:35 NT-Pro-B Natriuret Pep 71 pg/mL (0-125) 06/19/23 17:26 Total Protein 6.9 g/dL (6.6-8.7) 06/19/23 17:26 Albumin 4.1 g/dL (3.5-5.2) 06/19/23 17:26 Globulin 2.8 g/dL (1.3-4.6) 06/19/23 17:26 Vitamin B12 150 pg/mL (232-1245) L 06/19/23 19:35 Vitals Last Vital Signs Temp 97.7 F 06/20/23 07:34 Pulse 61 06/20/23 07:34 Resp 16 06/20/23 07:34 BP 158/84 06/20/23 09:23 Pulse Ox 99 06/20/23 07:34 O2 Del Method Room Air 06/20/23 07:34 Discharge Plan Discharge Patient Disposition: Home Condition: Stable Prescriptions: New Eliquis 5 mg tablet 5 mg PO BID Qty: 120 4RF Rx Instructions: 10 mg twice daily for 7 days then 5 mg twice daily for 6-month magnesium 200 mg tablet 200 mg PO DAILY Qty: 30 0RF cyanocobalamin (vitamin B-12) 1,000 mcg tablet 1,000 mcg PO DAILY Qty: 90 3RF Continued glipizide 10 mg tablet extended release 24hr 20 mg PO QAM simvastatin 20 mg tablet 20 mg PO BEDTIME losartan 100 mg tablet 100 mg PO QAM tamsulosin 0.4 mg capsule 0.4 mg PO QAM dorzolamide-timolol 22.3-6.8 mg/mL drops 1 drp ophthalmic (eye) BID Rx Instructions: BOTH EYES hydrocodone-acetaminophen 5-325 mg tablet 1 tab PO Q6H PRN (Reason: Pain) metformin 500 mg tablet extended release 24 hr 1,000 mg PO BID Discontinued Aspir-81 81 mg Tablet,Delayed Release (Dr/Ec) 81 mg PO QPM Discharge Orders: Discharge Order (Routine); Ordered 06/20/23 Ordered By: Juan David Referrals: Rich Villanueva DPM [Physician] - 1 week (We have notified your physician's clinic of the need for a follow-up appointment to be scheduled. If you have not heard from them within the next 2 business days, please call them directly. ) Dominic Car MD [Primary Care Provider] - 4-7 days (please contact your doctors office at [phone] for a follow up apointment in 4-7days) Discharge Diet: Advance as tolerated Discharge Activity: Resume usual activity Patient Instructions: Opioid Safety, Pain Management Activity Restrictions/Additional Instructions: Activity Restrictions/Additional Instructions: Thank you for choosing [facility] for your healthcare needs today. Please realize that you were seen in the Emergency Department and that we are providing you with an emergency medical screening exam and this may not be a complete and all inclusive of all the testing and or medical work-up that you may need to determine your ailment or severity of your illness. It is very important that you follow-up as instructed with your Primary care provider or Specialist for additional evaluation and to discuss your medical treatment plan. You may return to the Emergency Department should you have concerns or if your condition changes or worsens in any way. Discharge Attestations Time Spent in Discharge Care*: greater than 30 min Quality Metrics Clinical Quality Measures [ No reported AMI, CVA or VTE this stay] Coding Level of Care Code Acute Code for Chg Fwd Diagnoses Lower extremity edema R60.0 DVT (deep venous thrombosis) I82.451 Affected thrombotic vein of extremity: peroneal Chronicity: acute DVT location: lower extremity Laterality: right
[2023-06-20 12:00] VITALS: BP 155/76; PULSE 60; RESP 16; TEMP 36.5; O2SAT 100
[2023-06-20 12:11] LABS: Glucose Point of Care 198 mg/dL (70-110)
[2023-06-20] MEDS: cyanocobalamin 1,000 mcg/mL SDV 1000 MCG IM (12:11)
[2023-06-20] MEDS: magnesium oxide 400 mg tablet PO (12:11)
[2023-06-20 12:45] VITALS: BP 155/76; PULSE 60; RESP 16; TEMP 36.5; O2SAT 100
--- NOTE | 2023-06-20 12:45 | PC.NURSE ---
written discharge instructions discussed and left with patient. pt iv cath removed , pt tolerated removal well.
[2023-06-20 12:51] LABS: Homocysteine 14.59
--- NOTE | 2023-06-20 13:10 | PC.NURSE ---
pt escorted of unit via wheelchair accompanied by staff. pt left in pov with spouse driving.
[2023-06-24 22:30] LABS: Methylmalonic Acid 691 nmol/L (87-318)
== END 2023-06-20 13:10 | disposition home or self-care (01) ==
LOC: ER 18:32 → MEDSURG 18:43
PROVIDERS: Admitting Provider Internal Medicine; Emergency Provider Internal Medicine; PCP Family Medicine; Visit Provider Internal Medicine
DX: I82.451 Acute embolism and thrombosis of right peroneal vein (principal); E11.9 Type 2 diabetes mellitus without complications
CPT/HCPCS: 36415; 36416; 80048; 80053; 82607; 82962; 83036; 83090; 83735; 83880; 83921; 84484; 85025; 85378; 85610; 85730; 93005; 93306; 93971; 96372; 99285; G0378; J1650; J1815; J3420

== ENCOUNTER → 2023-06-29 15:06 | Outpatient (BNVA) | payer MEDICARE, OTHER, SELFPAY | PROVIDERS: PCP Family Medicine; Visit Provider Podiatrist Foot & Ankle Surgery | DX: L60.3 Nail dystrophy (principal); G62.9 Polyneuropathy, unspecified; E11.42 Type 2 diabetes mellitus with diabetic polyneuropathy; Z79.84 Long term (current) use of oral hypoglycemic drugs | CPT/HCPCS: 11721; 99203 ==

== ENCOUNTER 2023-08-25 05:49 | Emergency (ER) | payer MEDICARE, OTHER, SELFPAY ==
[2023-08-25 05:53] VITALS: BP 214/90; PULSE 64; RESP 15; TEMP 36.5; O2SAT 99; BMI 27.4
--- NOTE | 2023-08-25 05:58 | USR_ITS ---
PROCEDURE INFORMATION: Exam: US Abdomen, Limited; Right Upper Quadrant Exam date and time: 08/25/2023 6:15 AM Age: 73 years old Clinical indication: Abdominal pain; Acute; Additional info: Abd pain TECHNIQUE: Imaging protocol: Real time ultrasound of the abdomen with image documentation. Limited exam focused on the right upper quadrant. COMPARISON: US gall bladder [id number] 03/08/2022 4:12 AM FINDINGS: Liver: Liver is not enlarged measuring 16.0 cm in sagittal dimension. No focal liver lesions are detected. Gallbladder: The gallbladder is mildly distended. There are multiple echogenic foci within the gallbladder favored to be a combination of small stones and sludge. 1 measurement of the gallbladder wall was 3.0 mm which would be borderline thickened however the remainder of the gallbladder wall does not appear thickened. Technologist did not note tenderness over the gallbladder during scanning Biliary ducts: The common bile duct is not dilated and no intrahepatic biliary ductal dilatation detected. Pancreas: No focal abnormality detected in the pancreatic head or body. Pancreatic tail could not be imaged. Right kidney: Right kidney measures 11.0 cm in length and is unremarkable. Inferior vena cava: The visualized portion of the inferior vena cava is unremarkable. Portal venous: The main portal vein is patent with normal direction of flow US/US gall bladder [id number] IMPRESSION: 1. Mild gallbladder distension. Gallbladder contains multiple echogenic foci are thought to be a combination of small stones and sludge. No definite gallbladder wall thickening. Negative for biliary ductal dilatation 2. Incomplete visualization pancreas
--- NOTE | 2023-08-25 05:59 | ECG_ITS ---
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 Measurements Intervals [place] Rate: 64 P: 68 AL: 231 QRS: -1 QRSD: 124 T: 30 QT: 400 QTc: 413 Interpretive Statements SINUS RHYTHM WITH FIRST DEGREE AV BLOCK WITH OCCASIONAL SUPRAVENTRICULAR PREMATURE COMPLEXES RIGHT BUNDLE BRANCH BLOCK [120+ ms QRS DURATION, UPRIGHT V1, 40+ ms S IN I/aVL/V4/V5/V6] Compared to ECG 06/19/2023 17:57:08 No significant changes Electronically Signed On 08-25-2023 23:53:14 CDT by Sarah Weller M.D. [id number]
--- NOTE | 2023-08-25 06:00 | ED_ITS ---
HPI - Abdominal Pain 2 General: Chief Complaint: Abdominal Pain Stated Complaint: Back Pain\ADB Pain Time Seen by Provider: 08/25/23 05:55 Source: patient Mode of arrival: ambulatory History of Present Illness: 73 yo male present to the ER with compla ints of abd pain. He has previously had gallbladder US showing cholelithiasis with mild thickening of the gallbladder wall. Patient states he ate some chili last night had a lot of upset stomach took some antacids continue to have worsening symptoms through the night COVID a few hours ago woke with more significant pain and nausea. He has not had any vomiting or diarrhea. Urine a half ago patient was seen for abdominal plain and a gallbladder ultrasound that showed cholelithiasis and some wall thickening. He had follow-up with general surgery at that point they did not feel he needed to have a cholecystectomy. He has intermittently had symptoms since. He did have a DVT in May of this year he currently is on Eliquis. MD elicited complaint: abdominal pain Pertinent past history: other (cholelithiasis) Pain Consistency: constant Location: RUQ Quality: sharp Radiation: back Exacerbating factors: nothing Relieving factors: nothing Associated Symptoms: Reports bloating; Denies anorexia, belching, change in bowel habits, change in stool character, chills, coffee ground emesis, constipation, GI cramping, diarrhea, dyspepsia, dysuria, excessive flatus, fever(s), heartburn, hematochezia, hematuria, hematemesis, fecal incontinence, loose stools, nausea, poor appetite, syncope, vomiting and other Review of Systems 2 Const: Denies: fever(s) or chills Card: Denies: chest pain or syncope Resp: Denies: dyspnea GI: Reports: bloating; Denies: abdominal pain, nausea, vomiting, hematemesis, coffee ground emesis, heartburn, diarrhea, constipation, GI cramping, belching, excessive flatus, fecal incontinence, change in bowel habits, change in stool character, hematochezia or other : Denies: dysuria, urinary frequency, urinary urgency or hematuria Musc: Denies: neck pain or back pain Skin/Breast: Denies: rash PFSH ED 2 PFSH: Medical History (Updated 08/25/23 @ 08:02 by Alejandro Benson DO) Peripheral neuropathy Type 2 diabetes mellitus DVT (deep venous thrombosis) Onychomycosis due to dermatophyte Lower extremity edema Physical Exam 2 Const: GENERAL APPEARANCE: cooperative and comfortable O RIENTATION/CONSCIOUSNESS: Yes awake, Yes oriented to person, Yes oriented to place and Yes oriented to time HENMT: COMMON NORMALS: normocephalic, atraumatic and hearing grossly normal bilaterally HEAD & SCALP: normocephalic and atraumatic Resp: COMMON NORMALS: normal respiratory effort, No retractions, No use of accessory muscles and clear to auscultation bilaterally AUSCULTATION: clear to auscultation bilaterally Cardio: COMMON NORMALS: regular rate, regular rhythm and No murmurs present (Cardio) RATE: regular rate RHYTHM: regular rhythm GI: COMMON NORMALS: No hepatosplenomegaly present AUSCULTATION: Yes normoactive bowel sounds PALPATION: Yes Tenderness to palpation present (GI) Details: RUQ, No Guarding due to palpation present (GI) and Yes No hepatosplenomegaly present Extremity: COMMON NORMALS: normal to inspection, capillary refill normal, no clubbing, cyanosis or edema, no calf tenderness and no pedal edema Neuro: SENSORIUM/ORIENTATION: Yes oriented to person, Yes oriented to place and Yes oriented to time Skin: COMMON NORMALS: no rashes or lesions noted GENERAL SKIN EXAM: no rashes or lesions noted Course 2 Vital Signs: Vital signs: Vital Signs Temperature 97.7 F 08/25/23 05:53 Pulse Rate 82 08/25/23 09:17 Respiratory Rate 16 08/25/23 09:17 Blood Pressure 136/73 08/25/23 09:17 Pulse Oximetry 98 08/25/23 09:17 Oxygen Delivery Me thod Room Air 08/25/23 06:42 MDM - Abdominal Pain Medical Decision Making Biliary colic has been having multiple episodes recently triggered by particular foods. White count normal liver functions normal no sign of obstruction of the common bile duct. No sign of acute cholecystitis on the ultrasound. Liver functions and T. bili unremarkable. Discharge home avoid trigger foods follow- up with general surgery to reconsider and reevaluate for cholecystectomy Medical Records I reviewed the patient's medical records. Lab Data I reviewed the patient's lab results. 08/25/23 06:05 08/25/23 06:05 Labs/Radiology: Radiology Impressions Gallbladder Ultrasound 08/25/23 05:58 IMPRESSION: 1. Mild gallbladder distension. Gallbladder contains multiple echogenic foci are thought to be a combination of small stones and sludge. No definite gallbladder wall thickening. Negative for biliary ductal dilatation 2. Incomplete visualization pancreas Abdomen/Pelvis CT 08/25/23 06:48 IMPRESSION: 1. Distended gallbladder with stones and probable sludge but no gallbladder wall thickening or biliary ductal dilatation. See above. At least 1 small stone projects in the cystic duct . 2. Normal appendix 3. Diverticulosis without CT evidence for active diverticulitis 4. Fairly large amount of stool suggesting mild constipation 5. Nonobstructing calculus left kidney. Negative for hydronephrosis. Negative for ureteral calculus. 6. Mild wall thickening bladder 7. Enlarged prostate gland 8. Small umbilical and bilateral inguinal hernias containing only fat. Laboratory Results WBC 11.04 10^3/uL (3.29-11.43) 08/25/23 06:05 RBC 4.62 10^6/uL (3.85-5.65) 08/25/23 06:05 Hgb 14.70 g/dL (11.27-16.99) 08/25/23 06:05 Hct 41.1 % (37-53) 08/25/23 06:05 MCV 89.0 fl (82-101) 08/25/23 06:05 MCH 31.8 pg (27-33) 08/25/23 06:05 MCHC 35.8 g/dL (30-55) 08/25/23 06:05 RDW 12.4 % (12.1-15.1) 08/25/23 06:05 Plt Count 207 10^3/cmm (157-399) 08/25/23 06:05 MPV 9.6 fL (7.4-10.4) 08/25/23 06:05 Neut % (Auto) 86.2 % 08/25/23 06:05 Lymph % (Auto) 9.9 % 08/25/23 06:05 [place] % (Auto) 2.8 % 08/25/23 06:05 Eos % (Auto) 0.4 % 08/25/23 06:05 Baso % (Auto) 0.3 % 08/25/23 06:05 Neut # (Auto) 9.53 10^3/uL (1.8-7.7) H 08/25/23 06:05 Lymph # (Auto) 1.1 10^3/uL (0.8-4.8) 08/25/23 06:05 [place] # (Auto) 0.3 10^3/uL (0.2-0.9) 08/25/23 06:05 Eos # (Auto) 0.0 10^3/uL (0.0-0.8) 08/25/23 06:05 Baso # (Auto) 0.0 10^3/uL (0.0-0.1) 08/25/23 06:05 Nucleated RBC % (auto) 0 % 08/25/23 06:05 Nucleated RBCs # 0.0 /100WBC 08/25/23 06:05 Sodium 136 mmol/L (136-145) 08/25/23 06:05 Potassium 4.7 mmol/L (3.5-5.1) 08/25/23 06:05 Chloride 101 mmol/L (98-107) 08/25/23 06:05 Carbon Dioxide 23 mmol/L (22-29) 08/25/23 06:05 Anion Gap 16.7 (5-19) 08/25/23 06:05 BUN 18 mg/dL (8-23) 08/25/23 06:05 Creatinine 0.8 mg/dL (0.7-1.2) 08/25/23 06:05 GFR Calculation Not Reportable 08/25/23 06:05 Glucose 294 mg/dL (65-115) H 08/25/23 06:05 Calculated Osmolality 295 mOsm/kg (285-295) 08/25/23 06:05 Calcium 9.8 mg/dL (8.5-10.5) 08/25/23 06:05 Total Bilirubin 0.4 mg/dL (0.15-1.2) 08/25/23 06:05 AST 14 U/L (0-40) 08/25/23 06:05 ALT 13 U/L (0-41) 08/25/23 06:05 Alkaline Phosphatase 83 U/L (40-130) 08/25/23 06:05 Troponin T Baseline 13 ng/L (0-15) 08/25/23 06:05 Total Protein 7.3 g/dL (6.6-8.7) 08/25/23 06:05 Albumin 4.6 g/dL (3.5-5.2) 08/25/23 06:05 Globulin 2.7 g/dL (1.3-4.6) 08/25/23 06:05 Lipase 67 U/L (13-60) H 08/25/23 06:05 Urine Color Light yellow (Yellow) 08/25/23 06:30 Urine Appearance Clear (CLEAR) 08/25/23 06:30 Urine pH 6 (5-7) 08/25/23 06:30 Ur Specific [place] 1.020 (1.005-1.030) 08/25/23 06:30 Urine Protein Neg (Negative) 08/25/23 06:30 Urine Glucose (UA) 4+ (Normal) H 08/25/23 06:30 Urine Ketones 1+ (Negative) H 08/25/23 06:30 Urine Blood Neg (Negative) 08/25/23 06:30 Urine Nitrate Negative (Negative) 08/25/23 06:30 Urine Bilirubin Neg (Negative) 08/25/23 06:30 Urine Urobilinogen Neg mg/dL (Negative) 08/25/23 06:30 Ur Leukocyte Esterase Negative (Negative) 08/25/23 06:30 All radiology interpretation(s) finalized by discharge Discharge Plan Discharge Patient Disposition: Home Clinical Impression: Biliary colic Condition: Stable Prescriptions: New hydrocodone-acetaminophen 5-325 mg tablet 1 tab PO Q6H PRN (Reason: pain) Qty: 10 0RF ondansetron HCl 4 mg tablet 4 mg PO Q6H PRN (Reason: nausea and vomiting) Qty: 20 0RF No Action glipizide 10 mg tablet extended release 24hr 20 mg PO QAM simvastatin 20 mg tablet 20 mg PO BEDTIME losartan 100 mg tablet 100 mg PO QAM tamsulosin 0.4 mg capsule 0.4 mg PO QAM dorzolamide-timolol 22.3-6.8 mg/mL drops 1 drp ophthalmic (eye) BID Rx Instructions: BOTH EYES (DME) diabetic shoes with 3 inserts See Rx Instructions .Route .MEDSUPPLY Qty: 1 0RF Rx Instructions: As directed hydrocodone-acetaminophen 5-325 mg tablet 1 tab PO Q6H PRN (Reason: Pain) metformin 500 mg tablet extended release 24 hr 1,000 mg PO BID magnesium 200 mg tablet 200 mg PO DAILY Qty: 30 0RF Eliquis 5 mg tablet 5 mg PO BID Qty: 120 4RF Rx Instructions: 10 mg twice daily for 7 days then 5 mg twice daily for 6-month cyanocobalamin (vitamin B-12) 1,000 mcg tablet 1,000 mcg PO DAILY Qty: 90 3RF Discharge Orders: Discharge ED (Routine); Ordered 08/25/23 Ordered By: Alejandro Benson Referrals: Dominic Car MD [Primary Care Provider] - Discharge Diet: As Directed Patient Instructions: Biliary Colic (ED), Abdominal Pain (ED), Opioid Safety, Pain Management Activity Restrictions/Additional Instructions: Thank you for choosing [facility] for your healthcare needs today. Please realize this is an emergency room and that we are providing you with a medical screening exam and this may not be complete and all inclusive of all the testing and or work up that you may need to determine your ailment or severity of your illness. It is very important that you follow up as instructed or that you return to the Emergency Department should you have concerns or if your condition changes or worsens in any way. Your discomfort today appears to be associated with your gallbladder. You should follow-up with the surgeon regarding your recurrent episodes of biliary colic you have experienced. Coding Level of Care Code ED Legislative Director for Joseph Driscoll
[2023-08-25 06:12] LABS: Basophils % 0.3 %; Eosinophils % 0.4 %; Hematocrit 41.1 % (37-53); Lymphocytes # 1.1 10^3/uL (0.8-4.8); Lymphocytes % 9.9 %; Mean Corpuscular HGB Conc 35.8 g/dL (30-55); Mean Corpuscular Hemoglobin 31.8 pg (27-33); Mean Platelet Volume 9.6 fL (7.4-10.4); Monocytes # 0.3 10^3/uL (0.2-0.9); Monocytes % 2.8 %; Neutrophils # 9.53 10^3/uL (1.8-7.7); Neutrophils % 86.2 %; Nucleated Red Blood Cells % 0 %; Platelet Count 207 10^3/cmm (157-399); Red Blood Count 4.62 10^6/uL (3.85-5.65); Red Cell Distribution Width 12.4 % (12.1-15.1); White Blood Count 11.04 10^3/uL (3.29-11.43)
[2023-08-25 06:27] VITALS: BP 214/90; PULSE 66; RESP 10; O2SAT 100
[2023-08-25 06:30] LABS: Troponin(5th) Baseline 13 ng/L (0-15)
[2023-08-25 06:32] LABS: Alanine Aminotransferase 13 U/L (0-41); Albumin Level 4.6 g/dL (3.5-5.2); Alkaline Phosphatase 83 U/L (40-130); Anion Gap 16.7 (5-19); Aspartate Amino Transferase 14 U/L (0-40); Blood Urea Nitrogen 18 mg/dL (8-23); Calcium 9.8 mg/dL (8.5-10.5); Carbon Dioxide 23 mmol/L (22-29); Chloride 101 mmol/L (98-107); Creatinine Clr Calc Pharmacy 77.3255; Globulin 2.7 g/dL (1.3-4.6); Glucose 294 mg/dL (65-115); Lipase 67 U/L (13-60); Osmolality Calculated 295 mOsm/kg (285-295); Potassium 4.7 mmol/L (3.5-5.1); Sodium 136 mmol/L (136-145); Total Bilirubin 0.4 mg/dL (0.15-1.2); Total Protein 7.3 g/dL (6.6-8.7)
[2023-08-25 06:42] VITALS: PULSE 65; RESP 12; O2SAT 97
[2023-08-25 06:45] LABS: Add Urine Microscopic? NO; Charge for UA Resulting for Rev
--- NOTE | 2023-08-25 06:48 | CTR_ITS ---
PROCEDURE INFORMATION: Exam: CT Abdomen And Pelvis Without Contrast Exam date and time: 08/25/2023 7:00 AM Age: 73 years old Clinical indication: Abdominal pain; Localized; Upper; Prior surgery; Surgery date: 6+ months; Surgery type: Hernia repair TECHNIQUE: Imaging protocol: Computed tomography of the abdomen and pelvis without contrast. Radiation optimization: All CT scans at this facility use at least one of these dose optimization techniques: automated exposure control; mA and/or kV adjustment per patient size (includes targeted exams where dose is matched to clinical indication); or iterative reconstruction. COMPARISON: CT abdomen pelvis w con* [id number] 03/08/2022 3:26 AM RADIATION DOSE METRICS: Total DLP (mGy-cm): 506.51 FINDINGS: Lungs: There is mild dependent atelectasis in both lower lobes.. There is wall thickening involving the distal esophagus which could indicate gastroesophageal reflux/esophagitis. Liver: Normal. No mass. Gallbladder and bile ducts: The gallbladder is mildly distended. There are gallstones in the gallbladder including at least 1 in the cystic duct as before. There is probable sludge in the gallbladder. Gallbladder wall does not appear thickened. There is no biliary ductal dilatation. Pancreas: The pancreas is unremarkable. Spleen: Normal. No splenomegaly. Adrenal glands: The adrenal glands are normal. Kidneys and ureters: There is bilateral perinephric stranding. There is a nonobstructing stone in the lower pole of the left kidney measuring 6.0 x 3.8 mm. There is no hydronephrosis no ureteral calculus is detected Stomach and bowel: The bowel-gas pattern is not obstructed. There is a [id number] amount of stool suggesting constipation. There is sigmoid diverticulosis without CT evidence for active diverticulitis. Appendix: The appendix is normal Intraperitoneal space: Unremarkable. No free air. No significant fluid collection. Vasculature: There are atherosclerotic changes involving the aorta and branch vessels without aneurysm Lymph nodes: Unremarkable. No enlarged lymph nodes. Urinary bladder: There is mild wall thickening involving the bladder which has improved compared with the prior study. Reproductive: The prostate gland is mildly enlarged and contains calcification. Bones/joints: There are degenerative changes in the spine, sacroiliac joints and hips. There are old fracture fragments associated with both hips Soft tissues: There is a small umbilical hernia containing only fat. There are bilateral inguinal hernias containing only fat, [id number]-left. There is asymmetric thickening involving the left hamstring tendons and asymmetric old avulsion the posteroinferior left ischium. Findings suggest sequela of prior trauma. CT/CT abdomen pelvis wo con [id number] IMPRESSION: 1. Distended gallbladder with stones and probable sludge but no gallbladder wall thickening or biliary ductal dilatation. See above. At least 1 small stone projects in the cystic duct . 2. Normal appendix 3. Diverticulosis without CT evidence for active diverticulitis 4. Fairly large amount of stool suggesting mild constipation 5. Nonobstructing calculus left kidney. Negative for hydronephrosis. Negative for ureteral calculus. 6. Mild wall thickening bladder 7. Enlarged prostate gland 8. Small umbilical and bilateral inguinal hernias containing only fat.
[2023-08-25 06:49] LABS: Bilirubin Urine Neg (Negative); Blood Urine Neg (Negative); Glucose Urine UA 4+ (Normal); Ketones Urine 1+ (Negative); Leukocyte Esterase Urine Negative (Negative); Nitrate Urine Negative (Negative); Protein Urine Neg (Negative); Urine Appearance Clear (CLEAR); Urine Color Light yellow (Yellow); Urobilinogen Urine Neg (Negative); pH Urine 6 (5-7)
[2023-08-25] MEDS: ondansetron 2 mg/ML SDV 2 mL 4 MG IVP (08:13)
[2023-08-25] MEDS: morphine 4 mg/mL SDV 1 mL IVP (08:13)
[2023-08-25 09:17] VITALS: BP 136/73; PULSE 82; RESP 16; O2SAT 98
== END 2023-08-25 09:18 | disposition home or self-care (01) ==
PROVIDERS: Emergency Provider Family Medicine; PCP Family Medicine
DX: K80.50 Calculus of bile duct without cholangitis or cholecystitis without obstruction (principal); Z79.01 Long term (current) use of anticoagulants; Z79.84 Long term (current) use of oral hypoglycemic drugs; E11.42 Type 2 diabetes mellitus with diabetic polyneuropathy
CPT/HCPCS: 74176; 76705; 80053; 81003; 83690; 84484; 85025; 93005; 96374; 96375; 99285; J2270; J2405

== ENCOUNTER 2023-08-29 23:04 | Emergency (ER) | payer MEDICARE, OTHER, SELFPAY ==
[2023-08-29 23:08] VITALS: BP 210/98; PULSE 54; RESP 17; TEMP 36.6; O2SAT 99; BMI 27.4
[2023-08-30 01:00] LABS: Basophils % 0.2 %; Eosinophils # 0.1 10^3/uL (0.0-0.8); Eosinophils % 0.5 %; Hematocrit 39.6 % (37-53); Lymphocytes # 0.8 10^3/uL (0.8-4.8); Mean Corpuscular HGB Conc 36.1 g/dL (30-55); Mean Corpuscular Hemoglobin 31.9 pg (27-33); Mean Corpuscular Volume 88.4 fl (82-101); Mean Platelet Volume 9.5 fL (7.4-10.4); Monocytes # 0.6 10^3/uL (0.2-0.9); Monocytes % 4.6 %; Neutrophils # 10.55 10^3/uL (1.8-7.7); Neutrophils % 87.5 %; Nucleated Red Blood Cells % 0 %; Platelet Count 232 10^3/cmm (157-399); Red Blood Count 4.48 10^6/uL (3.85-5.65); Red Cell Distribution Width 12.3 % (12.1-15.1); White Blood Count 12.05 10^3/uL (3.29-11.43)
[2023-08-30] MEDS: sodium chloride 0.9% 1,000 ML 999 ML IV (01:09)
[2023-08-30] MEDS: ketorolac 30 mg/mL INJ 15 MG IVP (01:10)
[2023-08-30] MEDS: ondansetron 2 mg/ML SDV 2 mL 4 MG IVP (01:11)
[2023-08-30 01:13] VITALS: PULSE 526; RESP 18; O2SAT 100
[2023-08-30] MEDS: morphine 4 mg/mL SDV 1 mL IVP ×2 (01:13→02:26)
[2023-08-30 01:16] LABS: Lactic Sepsis W/Reflex 1.5 mmol/L (0.5-2.2)
[2023-08-30 01:17] LABS: Alanine Aminotransferase 14 U/L (0-41); Albumin Level 4.5 g/dL (3.5-5.2); Alkaline Phosphatase 100 U/L (40-130); Anion Gap 18.5 (5-19); Aspartate Amino Transferase 14 U/L (0-40); Blood Urea Nitrogen 16 mg/dL (8-23); C Reactive Protein 7.4 mg/L (0.0-4.9); Calcium 9.5 mg/dL (8.5-10.5); Carbon Dioxide 24 mmol/L (22-29); Chloride 96 mmol/L (98-107); Creatinine Clr Calc Pharmacy 77.3255; Glucose 338 mg/dL (65-115); Lipase 50 U/L (13-60); Osmolality Calculated 290 mOsm/kg (285-295); Potassium 5.5 mmol/L (3.5-5.1); Sodium 133 mmol/L (136-145); Total Bilirubin 0.7 mg/dL (0.15-1.2); Total Protein 7.5 g/dL (6.6-8.7)
[2023-08-30 02:26] VITALS: RESP 16; O2SAT 97
[2023-08-30 02:27] VITALS: BP 190/89; PULSE 63; RESP 16; O2SAT 98
--- NOTE | 2023-08-30 02:44 | W.ED.ABDPA2 ---
HPI - Abdominal Pain General: Chief Complaint: Abdominal Pain Stated Complaint: Back Pain Time Seen by Provider: 08/30/23 00:25 History of Present Illness: 73-year-old male with a history of biliary colic. This is actually a long history going back a couple of years. He has known gallstones, and was here a few days ago with similar pain. He notes that he has had pain for the last 24 hours that has not let up despite the use of hydrocodone at home. He has vomited a couple of times. No fever. Pain is now more situated in the epigastrium than the right upper quadrant. It radiates into his back. He is not short of breath. He has not had fever. No jaundice. Associated Symptoms: Denies chills, diarrhea, fever(s) and hematochezia Review of Systems Const: Denies: fever(s), chills or body aches Eyes: Denies: change in vision Card: Denies: chest pain or palpitations Resp: Denies: dyspnea, productive cough, non-productive cough or wheezing GI: Denies: diarrhea or hematochezia Skin/Breast: Denies: rash Neuro: Denies: headache(s), weakness in extremities, dizziness or confusion PFSH ED PFSH: Medical History Peripheral neuropathy Type 2 diabetes mellitus DVT (deep venous thrombosis) Onychomycosis due to dermatophyte Lower extremity edema Physical Exam Const: COMMON NORMALS: no acute distress GENERAL APPEARANCE: cooperative; not ill appearing and not frail appearing HENMT: COMMON NORMALS: normocephalic, atraumatic and Normal external nose present HEAD & SCALP: normocephalic and atraumatic FACE & SINUS: normal facial exam and face symmetric NOSE: Normal external nose present Eye: COMMON NORMALS: Equal, round and reactive pupils present and EOMs intact bilaterally PUPIL: Yes Equal, round and reactive pupils present Neck/C-Spine: GENERAL: Yes trachea midline Chest: CHEST: Yes Symmetrical chest wall rise Resp: COMMON NORMALS: normal respiratory effort, No retractions, No use of accessory muscles and clear to auscultation bilaterally AUSCULTATION: clear to auscultation bilaterally Cardio: COMMON NORMALS: regular rate and regular rhythm RATE: regular rate RHYTHM: regular rhythm GI: COMMON NORMALS: Normal to inspection, nondistended, normoactive bowel sounds present PALPATION: Yes Tenderness to palpation present (GI) (Epigastric) Extremity: COMMON NORMALS: no pedal edema Neuro: DELVIS COMA SCALE: document GCS findings [place] coma scale eye opening: Spontaneous [place] coma scale verbal response: Orientated [place] coma scale motor response: Obey commands Del[place] coma scale total score: 15 SENSORY EXAM: Yes extremities (intact) Psych: COMMON NORMALS: speech normal SPEECH: Yes normal speech Skin: COMMON NORMALS: no rashes or lesions noted GENERAL SKIN EXAM: no rashes or lesions noted Course Vital Signs: Vital signs: Vital Signs Temperature 98 F 08/29/23 23:08 Pulse Rate 94 08/30/23 03:39 Respiratory Rate 16 08/30/23 03:39 Blood Pressure 158/71 08/30/23 03:39 Pulse Oximetry 95 08/30/23 03:39 Oxygen Delivery Me thod Room Air 08/30/23 03:28 MDM - Abdominal Pain Medical Decision Making White blood cell count is stable from prior 12. Hemoglobin is 14. Potassium mildly elevated at 5.5, creatinine 0.8. Blood sugar is elevated. Lactic acid is 1.5. Liver enzymes are normal. CRP is only 7. Lipase is normal at 50. Pain is improved after administration of morphine, Zofran, and GI cocktail here. He is encouraged to call his surgeon later today for a follow-up appointment. Lab Data 08/30/23 00:50 08/30/23 00:50 Labs/Radiology: Laboratory Results WBC 12.05 10^3/uL (3.29-11.43) H 08/30/23 00:50 RBC 4.48 10^6/uL (3.85-5.65) 08/30/23 00:50 Hgb 14.30 g/dL (11.27-16.99) 08/30/23 00:50 Hct 39.6 % (37-53) 08/30/23 00:50 MCV 88.4 fl (82-101) 08/30/23 00:50 MCH 31.9 pg (27-33) 08/30/23 00:50 MCHC 36.1 g/dL (30-55) 08/30/23 00:50 RDW 12.3 % (12.1-15.1) 08/30/23 00:50 Plt Count 232 10^3/cmm (157-399) 08/30/23 00:50 MPV 9.5 fL (7.4-10.4) 08/30/23 00:50 Neut % (Auto) 87.5 % 08/30/23 00:50 Lymph % (Auto) 7.0 % 08/30/23 00:50 [place] % (Auto) 4.6 % 08/30/23 00:50 Eos % (Auto) 0.5 % 08/30/23 00:50 Baso % (Auto) 0.2 % 08/30/23 00:50 Neut # (Auto) 10.55 10^3/uL (1.8-7.7) H 08/30/23 00:50 Lymph # (Auto) 0.8 10^3/uL (0.8-4.8) 08/30/23 00:50 [place] # (Auto) 0.6 10^3/uL (0.2-0.9) 08/30/23 00:50 Eos # (Auto) 0.1 10^3/uL (0.0-0.8) 08/30/23 00:50 Baso # (Auto) 0.0 10^3/uL (0.0-0.1) 08/30/23 00:50 Nucleated RBC % (auto) 0 % 08/30/23 00:50 Nucleated RBCs # 0.0 /100WBC 08/30/23 00:50 Sodium 133 mmol/L (136-145) L 08/30/23 00:50 Potassium 5.5 mmol/L (3.5-5.1) H 08/30/23 00:50 Chloride 96 mmol/L (98-107) L 08/30/23 00:50 Carbon Dioxide 24 mmol/L (22-29) 08/30/23 00:50 Anion Gap 18.5 (5-19) 08/30/23 00:50 BUN 16 mg/dL (8-23) 08/30/23 00:50 Creatinine 0.8 mg/dL (0.7-1.2) 08/30/23 00:50 GFR Calculation Not Reportable 08/30/23 00:50 Glucose 338 mg/dL (65-115) H 08/30/23 00:50 Calculated Osmolality 290 mOsm/kg (285-295) 08/30/23 00:50 Lactic Acid 1.5 mmol/L (0.5-2.2) 08/30/23 00:50 Calcium 9.5 mg/dL (8.5-10.5) 08/30/23 00:50 Total Bilirubin 0.7 mg/dL (0.15-1.2) 08/30/23 00:50 AST 14 U/L (0-40) 08/30/23 00:50 ALT 14 U/L (0-41) 08/30/23 00:50 Alkaline Phosphatase 100 U/L (40-130) 08/30/23 00:50 C-Reactive Protein 7.4 mg/L (0.0-4.9) H 08/30/23 00:50 Total Protein 7.5 g/dL (6.6-8.7) 08/30/23 00:50 Albumin 4.5 g/dL (3.5-5.2) 08/30/23 00:50 Globulin 3.0 g/dL (1.3-4.6) 08/30/23 00:50 Lipase 50 U/L (13-60) 08/30/23 00:50 No radiology studies performed this visit Discharge Plan Discharge Patient Disposition: Home Clinical Impression: Biliary colic, Hypertension Condition: Stable Prescriptions: No Action glipizide 10 mg tablet extended release 24hr 20 mg PO QAM simvastatin 20 mg tablet 20 mg PO BEDTIME losartan 100 mg tablet 100 mg PO QAM tamsulosin 0.4 mg capsule 0.4 mg PO QAM dorzolamide-timolol 22.3-6.8 mg/mL drops 1 drp ophthalmic (eye) BID Rx Instructions: BOTH EYES (DME) diabetic shoes with 3 inserts See Rx Instructions .Route .MEDSUPPLY Qty: 1 0RF Rx Instructions: As directed hydrocodone-acetaminophen 5-325 mg tablet 1 tab PO Q6H PRN (Reason: Pain) metformin 500 mg tablet extended release 24 hr 1,000 mg PO BID magnesium 200 mg tablet 200 mg PO DAILY Qty: 30 0RF Eliquis 5 mg tablet 5 mg PO BID Qty: 120 4RF Rx Instructions: 10 mg twice daily for 7 days then 5 mg twice daily for 6-month cyanocobalamin (vitamin B-12) 1,000 mcg tablet 1,000 mcg PO DAILY Qty: 90 3RF hydrocodone-acetaminophen 5-325 mg tablet 1 tab PO Q6H PRN (Reason: pain) Qty: 10 0RF ondansetron HCl 4 mg tablet 4 mg PO Q6H PRN (Reason: nausea and vomiting) Qty: 20 0RF Discharge Orders: Discharge ED (Routine); Ordered 08/30/23 Ordered By: Castro Lay Referrals: Dominic Car MD [Primary Care Provider] - 1-3 days Patient Instructions: Biliary Colic (ED), Abdominal Pain (ED), Opioid Safety, Pain Management Activity Restrictions/Additional Instructions: It is important that you call your surgeon later this morning to let them know you were seen here with abdominal pain and diagnosed with biliary colic. Return to the ER for fever greater than 100, vomiting liquids or medications despite treatment, worsening pain despite treatment, shortness of breath, other concerning symptoms. Coding Level of Care Code ED Commercial Decorator for Joseph Driscoll
[2023-08-30] MEDS: lidocaine 2% viscous 15 ML, aluminum-mag hydrox-simethicon 30 ML, sucralfate oral liq 1 GM PO (02:45)
[2023-08-30] MEDS: amlodipine 10 mg Tablet PO (02:48)
[2023-08-30] MEDS: hyDRALAzine 20 mg/mL INJ 1 mL 10 MG IVP (02:49)
[2023-08-30 03:28] VITALS: BP 147/96; PULSE 93; O2SAT 97
[2023-08-30 03:39] VITALS: BP 158/71; PULSE 94; RESP 16; O2SAT 95
== END 2023-08-30 03:38 | disposition home or self-care (01) ==
PROVIDERS: Emergency Provider Emergency Medicine; PCP Family Medicine
DX: K80.50 Calculus of bile duct without cholangitis or cholecystitis without obstruction (principal); I10 Essential (primary) hypertension; Z79.01 Long term (current) use of anticoagulants; Z79.84 Long term (current) use of oral hypoglycemic drugs; E11.42 Type 2 diabetes mellitus with diabetic polyneuropathy
CPT/HCPCS: 80053; 83605; 83690; 85025; 86140; 96361; 96374; 96375; 96376; 99284; J0360; J1885; J2270; J2405; J7030

== ENCOUNTER 2023-08-31 09:20 | Inpatient (IN) | payer MEDICARE, OTHER, SELFPAY ==
[2023-08-31] VITALS (8 sets, daily range): BP systolic 136–187; BP diastolic 82–97; PULSE 77–91; RESP 16–20; TEMP 36.9–37.3; O2SAT 95–98; BMI 24.9
--- NOTE | 2023-08-31 09:52 | ED_ITS ---
HPI - Abdominal Pain 2 General: Chief Complaint: Abdominal Pain Stated Complaint: abd pain Time Seen by Provider: 08/31/23 09:49 Source: patient Mode of arrival: ambulatory Limitations: no limitations History of Present Illness: Patient is a nice 73-year-old male with a history of diabetes, DVT on eliquis, HTN, and hyperlipidemia who presents to ED today for continued and worsening abdominal pain. Patient has been seen here in the emergency department twice over the past week for similar discomforts. He has been diagnosed with biliary colic. Patient states he was scheduled for an initial visit with Dr. Willoughby today but return to the emergency department due to severe pain. He states his hydrocodone is not controlling his discomfort. He reports he is not eating and has had episodes of vomiting. States he is not producing much stool as he is not eating much. No fevers. No yellowing to his skin or eyes. MD elicited complaint: abdominal pain Pertinent past history: other (told he has biliary colic) Onset (ago): week(s) Pain Consistency: constant and intermittent (initially intermittent-now constant) Location: Epigastric, LUQ and RUQ Severity: severe Quality: sharp Radiation: back Migration to: no migration Exacerbating factors: eating Relieving factors: nothing Associated Symptoms: Reports nausea and vomiting; Denies chills, diarrhea, dysuria, fever(s) and hematemesis Review of Systems 2 Const: Denies: fever(s), chills, body aches, fatigue or malaise Card: Denies: chest pain Resp: Denies: dyspnea GI: Reports: abdominal pain, nausea and vomiting; Denies: hematemesis or diarrhea : Denies: flank pain, difficulty urinating, dysuria, urinary frequency, urinary urgency or urinary hesitancy Musc: Reports: back pain (states pain radiates into his back); Denies: neck pain, extremity pain, extremity swelling, joint pain or joint swelling Skin/Breast: Denies: rash Neuro: Denies: headache(s), numbness in extremities, weakness in extremities, sensory changes or dizziness PFSH ED 2 PFSH: Medical History Peripheral neuropathy Type 2 diabetes mellitus DVT (deep venous thrombosis) Onychomycosis due to dermatophyte Lower extremity edema Physical Exam 2 Const: COMMON NORMALS: average body habitus, patient oriented x3, no limitations, healthy appearing, alert and well nourished GENERAL APPEARANCE: cooperative and in distress (appears uncomfortable secondary to pain) Eye: COMMON NORMALS: no scleral icterus Resp: COMMON NORMALS: normal respiratory effort and clear to auscultation bilaterally AUSCULTATION: clear to auscultation bilaterally Cardio: COMMON NORMALS: regular rate and regular rhythm RATE: regular rate RHYTHM: regular rhythm GI: COMMON NORMALS: Normal to inspection, nondistended, normoactive bowel sounds present, Soft to palpation, No hepatosplenomegaly present and no masses INSPECTION: Yes normal to inspection PALPATION: Yes Soft to palpation, Yes Tenderness to palpation present (GI) (throughout upper abdomen but max tenderness to RUQ), Yes Guarding due to palpation present (GI), No Rigid due to palpation and Yes No hepatosplenomegaly present : COMMON NORMALS: Yes no CVA tenderness BLADDER/KIDNEY EXAM: Yes no CVA tenderness Back/Pelvis: COMMON NORMALS: no CVA tenderness Neuro: COMMON NORMALS: patient oriented x3 SENSORIUM/ORIENTATION: Yes alert Course 2 Consultations: Consultation #1: Dr. Larson-will consult on patient in ED; after consultation recommendations for admission for IV pain control and antibiotics, hold eliquis, plan on OR on ; states we can admit to him for primary but would appreciate hospitalist consult to manage other medical conditions; clear liquid diet with NPO at midnight on Wednesday in preparation for surgery Vital Signs: Vital signs: Vital Signs Temperature 99.1 F 08/31/23 09:28 Pulse Rate 85 08/31/23 13:25 Respiratory Rate 20 H 08/31/23 13:25 Blood Pressure 150/95 08/31/23 13:25 Pulse Oximetry 98 08/31/23 13:25 Oxygen Delivery Me thod Room Air 08/31/23 13:25 MDM - Abdominal Pain Medical Decision Making Patient is a nice 73-year-old male with diagnosed biliary colic here for worsening pain. This is now patient's third ED visit in less than a week. He is visibly uncomfortable. Labs today show a scantly elevated white count at 13.08. His CRP is quite a bit higher than it was yesterday. Bilirubin is slightly elevated at 1.3 today with the remainder of his LFTs being normal. Ultrasound of his gallbladder today showing acute cholecystitis with very thick gallbladder sludge and stones. General surgeon Dr. Larson is consulted on patient and will admit him. Dr. Ponce will manage other medical conditions. He has been started on IV Zosyn here. Dr. Stein aware of patient and will place admit orders. Lab Data 08/31/23 09:59 08/31/23 09:59 Labs/Radiology: Laboratory Results WBC 13.08 10^3/uL (3.29-11.43) H 08/31/23 09:59 RBC 4.72 10^6/uL (3.85-5.65) 08/31/23 09:59 Hgb 14.90 g/dL (11.27-16.99) 08/31/23 09:59 Hct 41.6 % (37-53) 08/31/23 09:59 MCV 88.1 fl (82-101) 08/31/23 09:59 MCH 31.6 pg (27-33) 08/31/23 09:59 MCHC 35.8 g/dL (30-55) 08/31/23 09:59 RDW 12.1 % (12.1-15.1) 08/31/23 09:59 Plt Count 206 10^3/cmm (157-399) 08/31/23 09:59 MPV 9.3 fL (7.4-10.4) 08/31/23 09:59 Neut % (Auto) 84.2 % 08/31/23 09:59 Lymph % (Auto) 5.4 % 08/31/23 09:59 [place] % (Auto) 9.6 % 08/31/23 09:59 Eos % (Auto) 0.2 % 08/31/23 09:59 Baso % (Auto) 0.2 % 08/31/23 09:59 Neut # (Auto) 11.03 10^3/uL (1.8-7.7) H 08/31/23 09:59 Lymph # (Auto) 0.7 10^3/uL (0.8-4.8) L 08/31/23 09:59 [place] # (Auto) 1.3 10^3/uL (0.2-0.9) H 08/31/23 09:59 Eos # (Auto) 0.0 10^3/uL (0.0-0.8) 08/31/23 09:59 Baso # (Auto) 0.0 10^3/uL (0.0-0.1) 08/31/23 09:59 Nucleated RBC % (auto) 0 % 08/31/23 09:59 Nucleated RBCs # 0.0 /100WBC 08/31/23 09:59 Sodium 132 mmol/L (136-145) L 08/31/23 09:59 Potassium 4.2 mmol/L (3.5-5.1) 08/31/23 09:59 Chloride 96 mmol/L (98-107) L 08/31/23 09:59 Carbon Dioxide 23 mmol/L (22-29) 08/31/23 09:59 Anion Gap 17.2 (5-19) 08/31/23 09:59 BUN 9 mg/dL (8-23) 08/31/23 09:59 Creatinine 0.7 mg/dL (0.7-1.2) 08/31/23 09:59 GFR Calculation Not Reportable 08/31/23 09:59 Glucose 269 mg/dL (65-115) H 08/31/23 09:59 Calculated Osmolality 282 mOsm/kg (285-295) L 08/31/23 09:59 Calcium 9.3 mg/dL (8.5-10.5) 08/31/23 09:59 Total Bilirubin 1.3 mg/dL (0.15-1.2) H 08/31/23 09:59 AST 15 U/L (0-40) 08/31/23 09:59 ALT 15 U/L (0-41) 08/31/23 09:59 Alkaline Phosphatase 93 U/L (40-130) 08/31/23 09:59 C-Reactive Protein 58.4 mg/L (0.0-4.9) H 08/31/23 09:59 Total Protein 7.2 g/dL (6.6-8.7) 08/31/23 09:59 Albumin 4.3 g/dL (3.5-5.2) 08/31/23 09:59 Globulin 2.9 g/dL (1.3-4.6) 08/31/23 09:59 Lipase 37 U/L (13-60) 08/31/23 09:59 Urine Color Yellow (Yellow) 08/31/23 10:53 Urine Appearance Clear (CLEAR) 08/31/23 10:53 Urine pH 6 (5-7) 08/31/23 10:53 Ur Specific [place] 1.015 (1.005-1.030) 08/31/23 10:53 Urine Protein 1+ (Negative) H 08/31/23 10:53 Urine Glucose (UA) 4+ (Normal) H 08/31/23 10:53 Urine Ketones 3+ (Negative) H 08/31/23 10:53 Urine Blood Neg (Negative) 08/31/23 10:53 Urine Nitrate Negative (Negative) 08/31/23 10:53 Urine Bilirubin Neg (Negative) 08/31/23 10:53 Urine Urobilinogen Norm mg/dL (Negative) 08/31/23 10:53 Ur Leukocyte Esterase Negative (Negative) 08/31/23 10:53 Urine RBC 0-4 /hpf (0-2) H 08/31/23 10:53 Urine WBC 0-4 /hpf (0-5) H 08/31/23 10:53 Ur Squamous Epith Cells 0-4 /hpf (0-5) H 08/31/23 10:53 Amorphous Sediment Not Reportable 08/31/23 10:53 Urine Bacteria Trace /hpf (NONE) 08/31/23 10:53 All radiology interpretation(s) finalized by discharge Discharge Plan Discharge Patient Disposition: Admitted As Inpatient Clinical Impression: Acute cholecystitis Condition: Stable Prescriptions: No Action glipizide 10 mg tablet extended release 24hr 20 mg PO QAM simvastatin 20 mg tablet 20 mg PO BEDTIME losartan 100 mg tablet 100 mg PO QAM tamsulosin 0.4 mg capsule 0.4 mg PO QAM dorzolamide-timolol 22.3-6.8 mg/mL drops 1 drp ophthalmic (eye) BID Rx Instructions: BOTH EYES (DME) diabetic shoes with 3 inserts See Rx Instructions .Route .MEDSUPPLY Qty: 1 0RF Rx Instructions: As directed metformin 500 mg tablet extended release 24 hr 1,000 mg PO BID magnesium 200 mg tablet 200 mg PO DAILY Qty: 30 0RF Eliquis 5 mg tablet 5 mg PO BID Qty: 120 4RF cyanocobalamin (vitamin B-12) 1,000 mcg tablet 1,000 mcg PO DAILY Qty: 90 3RF hydrocodone-acetaminophen 5-325 mg tablet 1 tab PO Q6H PRN (Reason: pain) Qty: 10 0RF ondansetron HCl 4 mg tablet 4 mg PO Q6H PRN (Reason: nausea and vomiting) Qty: 20 0RF Referrals: Dominic Car MD [Primary Care Provider] - Patient Instructions: Opioid Safety, Pain Management Coding Level of Care Code ED Customer Support Agent for Joseph Driscoll
[2023-08-31 10:13] LABS: Basophils % 0.2 %; Eosinophils % 0.2 %; Hematocrit 41.6 % (37-53); Lymphocytes # 0.7 10^3/uL (0.8-4.8); Lymphocytes % 5.4 %; Mean Corpuscular HGB Conc 35.8 g/dL (30-55); Mean Corpuscular Hemoglobin 31.6 pg (27-33); Mean Corpuscular Volume 88.1 fl (82-101); Mean Platelet Volume 9.3 fL (7.4-10.4); Monocytes # 1.3 10^3/uL (0.2-0.9); Monocytes % 9.6 %; Neutrophils # 11.03 10^3/uL (1.8-7.7); Neutrophils % 84.2 %; Nucleated Red Blood Cells % 0 %; Platelet Count 206 10^3/cmm (157-399); Red Blood Count 4.72 10^6/uL (3.85-5.65); Red Cell Distribution Width 12.1 % (12.1-15.1); White Blood Count 13.08 10^3/uL (3.29-11.43)
[2023-08-31] MEDS: ondansetron 2 mg/ML SDV 2 mL 4 MG IVP (10:17)
[2023-08-31] MEDS: morphine 4 mg/mL SDV 1 mL IVP (10:17)
[2023-08-31] MEDS: sodium chloride 0.9% 1,000 ML 999 ML IV (10:18)
--- NOTE | 2023-08-31 10:22 | US_ITS ---
WS: [id number] RIGHT UPPER QUADRANT ULTRASOUND HISTORY: RUQ pain COMPARISON: 08/25/2023, 03/08/2022 Liver: 16.2 cm in length. Normal size liver and echogenicity. No bile duct dilatation or mass. Portal Vein: Normal hepatopetal flow with monophasic waveform. Gallbladder: Abnormal gallbladder. Gallbladder is moderately distended with echogenic foci throughout with wall thickening. Similar findings have been described on 08/25/2023. CBD: 0.3 cm Pancreas: Poorly visualized. Right kidney: 11.2 cm in length. Normal size and echogenicity. No hydronephrosis or mass. Aorta and IVC: Unremarkable abdominal aorta and IVC. No ascites. IMPRESSION: 1. Findings suspicious for acute cholecystitis. Very thick gallbladder sludge and stones in the gall bladder with gallbladder wall thickening. Findings of acute cholecystitis. Recommend surgical evaluat ion. 2. No bile duct dilatation.
[2023-08-31 10:36] LABS: Alanine Aminotransferase 15 U/L (0-41); Albumin Level 4.3 g/dL (3.5-5.2); Alkaline Phosphatase 93 U/L (40-130); Anion Gap 17.2 (5-19); Aspartate Amino Transferase 15 U/L (0-40); Blood Urea Nitrogen 9 mg/dL (8-23); Calcium 9.3 mg/dL (8.5-10.5); Carbon Dioxide 23 mmol/L (22-29); Chloride 96 mmol/L (98-107); Creatinine Clr Calc Pharmacy 74.0653; Globulin 2.9 g/dL (1.3-4.6); Glucose 269 mg/dL (65-115); Lipase 37 U/L (13-60); Osmolality Calculated 282 mOsm/kg (285-295); Potassium 4.2 mmol/L (3.5-5.1); Sodium 132 mmol/L (136-145); Total Bilirubin 1.3 mg/dL (0.15-1.2); Total Protein 7.2 g/dL (6.6-8.7)
[2023-08-31] MEDS: lidocaine 2% viscous 15 ML, aluminum-mag hydrox-simethicon 30 ML, sucralfate oral liq 1 GM PO (10:52)
[2023-08-31 11:14] LABS: C Reactive Protein 58.4 mg/L (0.0-4.9)
[2023-08-31 11:20] LABS: Protein Urine 1+ (Negative); Specific Gravity, Urine 1.015 (1.005-1.030); Urine Appearance Clear (CLEAR); Urine Color Yellow (Yellow); pH Urine 6 (5-7)
[2023-08-31 11:21] LABS: Add Urine Culture? No; Add Urine Microscopic? YES; Bacteria Urine TRACE /hpf; Bilirubin Urine Neg (Negative); Blood Urine Neg (Negative); Glucose Urine UA 4+ (Normal); Ketones Urine 3+ (Negative); Leukocyte Esterase Urine Negative (Negative); Nitrate Urine Negative (Negative); RBC Urine 0-4 /hpf (0-2); Squamous Epithelial Cell Urine 0-4 /hpf (0-5); Urobilinogen Urine Norm (Negative); WBC Urine 0-4 /hpf (0-5)
--- NOTE | 2023-08-31 11:28 | CT_ITS ---
WS: [id number] CT ABDOMEN PELVIS TECHNIQUE: Contrast-enhanced CT of the abdomen and pelvis with coronal and sagittal reformatted image s. CLINICAL INFORMATION: abdominal pain; hx of biliary colic? worsening pain COMPARISON: CT 08/25/2023 DLP: 530.[address] scans at [facility] use at least one of these dose optimization techniques: automated e xposure control; mA and/or kV adjustment per patient size (includes targeted exams where dose is matc hed to clinical indication); or iterative reconstruction. FINDINGS: Fluid distended gallbladder with cholelithiasis. Gallbladder wall thickening with slight surrounding induration and enhancement suspicious for acute cholecystitis concurrent with the ultrasound findings . Normal caliber common bile duct. Diffuse fatty infiltration of the liver. Normal portal vein and splenic vein. Tiny esophageal hiatal hernia. Normal spleen. Slight bibasal atelectasis. Mild distention and submucosal enhancement involvi ng the distal duodenum and duodenal jejunal junction likely reactive Normal caliber abdominal aorta. Or calcification. Adrenal glands are normal. Normal renal parenchymal enhancement. No hydronephrosis. Tiny bilateral renal cysts. Enlarged calcified prostate with evidence of bladder outlet obstruction. Recommend correlation PSA. F at-containing inguinal hernias with fluid along the RIGHT inguinal canal. There are few sigmoid diver ticuli. No evidence of acute diverticulitis. Normal appendix in the RIGHT lower quadrant. Small amoun t of free fluid in the pelvis and RIGHT paracolic gutter. Small amount of fluid along the undersurfac e of the RIGHT hepatic lobe. IMPRESSION: 1. Fluid distended gallbladder with wall enhancement and thickening. Small amount of induration in t he gallbladder fossa suspicious for acute cholecystitis compatible with the ultrasound findings. Sugg estion of one small calculus along the cystic duct. 2. No significant bile duct dilatation. 3. Small amount of perihepatic fluid extending into the RIGHT pericolic gutter and pelvis. 4. Mild distention of the duodenum and duodenal jejunal junction likely reactive. 5. No hydronephrosis. 6. Enlarged prostate with evidence of bladder outlet obstruction. 7. Fat-containing inguinal hernias with fluid along the RIGHT inguinal canal.
[2023-08-31] MEDS: iohexol 350 mg/mL 500 mL Btl (per mL) IV (11:45)
[2023-08-31] MEDS: piperacillin-tazobactam 3.375 GM in sodium chloride 0.9% (plus) 50 ML IV ×2 (12:36→17:51)
[2023-08-31] MEDS: ketorolac 30 mg/mL INJ 15 MG IVP ×3 (13:24→21:10)
--- NOTE | 2023-08-31 14:05 | P.HP_ITS ---
Providers/Chief Complaint 2 Primary Care Provider: Dominic Car MD Chief Complaint: abd pain History of Present Illness Gabo Headley is a 73 year old male who has known history of biliary colic and who presents to the emergency department complaining of 48 hours of abdominal pain in the right upper quadrant worsening with eating and that has not been able to be controlled with hydrocodone at home. Patient states that he has had gallbladder issues in the past, has been managed with pain control medication changes in diet but this time symptoms have been worsening. Denies fever chills or any other systemic symptoms. Review of Systems 2 Narrative: 10 point review of systems all negative otherwise noted on HPI Medications/Allergies Home Medications Medication Instructions Recorded Confirmed Last Taken Type dorzolamide 22.3 mg-timolol 6.8 1 drp ophthalmic (eye) BID 06/17/23 08/31/23 08/30/23 History mg/mL eye drops glipizide 10 mg tablet, extended 20 mg PO QAM 06/17/23 08/31/23 08/30/23 History release 24 hr losartan 100 mg tablet 100 mg PO QAM 06/17/23 08/31/23 08/30/23 History simvastatin 20 mg tablet 20 mg PO BEDTIME 06/17/23 08/31/23 08/30/23 History tamsulosin 0.4 mg capsule 0.4 mg PO QAM 06/17/23 08/31/23 08/30/23 History apixaban 5 mg tablet (Eliquis) 5 mg PO BID #120 tabs 06/20/23 08/31/23 08/30/23 Rx cyanocobalamin (vitamin B-12) 1,000 mcg PO DAILY #90 tabs 06/20/23 08/31/23 08/30/23 Rx 1,000 mcg tablet magnesium 200 mg tablet 200 mg PO DAILY #30 tabs 06/20/23 08/31/23 08/30/23 Rx metformin 500 mg tablet,extended 1,000 mg PO BID 06/20/23 08/31/23 08/30/23 History release 24 hr diabetic shoes with 3 inserts #1 ea 06/29/23 08/31/23 Unknown Rx hydrocodone 5 mg-acetaminophen 325 1 tab PO Q6H PRN pain #10 tabs 03/27/24 04/02/24 04/02/24 Rx mg tablet ondansetron HCl 4 mg tablet 4 mg PO Q6H PRN nausea and 08/25/23 08/31/23 Unknown Rx vomiting #20 tabs Allergies Allergy/AdvReac Type Severity Reaction Status Date / Time No Known Allergies Allergy Verified 08/29/23 23:13 PFSH Acute 2 PFSH: Medical History Peripheral neuropathy Type 2 diabetes mellitus DVT (deep venous thrombosis) Onychomycosis due to dermatophyte Lower extremity edema Vitals/I&O/Wt Last Vital Signs Temp 99.1 F 08/31/23 09:28 Pulse 85 08/31/23 13:25 Resp 20 H 08/31/23 13:25 BP 150/95 08/31/23 13:25 Pulse Ox 98 08/31/23 13:25 O2 Del Method Room Air 08/31/23 13:25 Weight last 48 hrs Weight 145 lb Physical Exam 2 Narrative: General : Patient is well developed , no acute distress, oriented x3 Head : Normal cephalic, a-traumatic. Nose : Mucous membranes are without erythema. Lungs : Equal chest rise bilaterally, no use of accessory muscles, trachea is midline. CV : Rate and rhythm are normal. Abdomen : Soft, there is tenderness in the right upper quadrant, negative Chopra sign. Extremities : No edema. Upper extremities are normal bilaterally. Back : non-tender to palpation, no CVA tenderness. Data 08/31/23 09:59 08/31/23 09:59 A&P Assessment and plan (1) Acute cholecystitis: Plan After complete history, physical examination and review of all available clinical data the following is my assessment. Patient presents with a clinical picture consistent with acute cholecystitis ultrasound shows gallbladder wall thickening on CT scan of the abdomen pelvis showed mild gallbladder wall thickening with some small amount of pericholecystic fluid. There are some stones in the gallbladder which appeared to be lower at the level of the duct. Vital signs are stable and laboratory workup is remarkable for a white count of 13 and very minimal elevation of the LFTs. I have discussed with the patient that with his findings most appropriate course of action will be to admit him for IV fluids and antibiotics. Since the patient is on Eliquis we will plan to hold Eliquis for 48 hours and then the patient is a stable and after resuscitation there is good clinical response the plan will be for laparoscopic cholecystectomy on . We will obtain a medical consultation for management of additional comorbidities. Patient agrees. Attestations 2 Medical Necessity Statement*: Patient will require 48 to 72 hours of hospital stay for management of acute cholecystitis. Coding Level of Care Code Acute Code for [facility] Diagnoses Acute cholecystitis K81.0
--- NOTE | 2023-08-31 16:35 | P.CONIM_ITS ---
Providers/Reason For Consult 2 Consulting Physician/Specialty*: Hospitalist Reason for Consult*: Medical management Requesting Physician: Dr. Larson Attending Physician: Raul Larson MD Primary Care Provider: Dominic Car MD History of Present Illness History of Present Illness Gabo Headley is a 73 year old male with known history of biliary colic presented to the emergency room for the third time for abdominal pain and right upper quadrant worse with eating. He was given hydrocodone at the last visit and the pain is uncontrolled. He denies fevers nausea or vomiting. In the ER he was found to have acute cholecystitis. General surgery is admitting consult placed for hypertension and diabetes Patient has not taken his medications today. He reports taking 2 medications for diabetes which are glipizide and metformin. He takes losartan 100 mg every morning for blood pressure and simvastatin for hypercholesterolemia. Review of Systems 2 Const: Denies: fever(s) or chills Eyes: Denies: change in vision ENMT: Denies: throat pain or nasal congestion Card: Denies: chest pain or palpitations Resp: Denies: dyspnea or productive cough GI: Reports: abdominal pain; Denies: nausea, vomiting or change in stool character : Denies: difficulty urinating or dysuria Musc: Denies: back pain or extremity pain Skin/Breast: Denies: rash or lesions Neuro: Denies: headache(s) or dizziness Psych: Denies: anxiety or depression Dany/Lymph: Denies: easy bruising or easy bleeding Medications/Allergies Home Medications Medication Instructions Recorded Confirmed Last Taken Type dorzolamide 22.3 mg-timolol 6.8 1 drp ophthalmic (eye) BID 06/17/23 08/31/23 08/30/23 History mg/mL eye drops glipizide 10 mg tablet, extended 20 mg PO QAM 06/17/23 08/31/23 08/30/23 History release 24 hr losartan 100 mg tablet 100 mg PO QAM 06/17/23 08/31/23 08/30/23 History simvastatin 20 mg tablet 20 mg PO BEDTIME 06/17/23 08/31/23 08/30/23 History tamsulosin 0.4 mg capsule 0.4 mg PO QAM 06/17/23 08/31/23 08/30/23 History apixaban 5 mg tablet (Eliquis) 5 mg PO BID #120 tabs 06/20/23 08/31/23 08/30/23 Rx cyanocobalamin (vitamin B-12) 1,000 mcg PO DAILY #90 tabs 06/20/23 08/31/23 08/30/23 Rx 1,000 mcg tablet magnesium 200 mg tablet 200 mg PO DAILY #30 tabs 06/20/23 08/31/23 08/30/23 Rx metformin 500 mg tablet,extended 1,000 mg PO BID 06/20/23 08/31/23 08/30/23 History release 24 hr diabetic shoes with 3 inserts #1 ea 06/29/23 08/31/23 Unknown Rx hydrocodone 5 mg-acetaminophen 325 1 tab PO Q6H PRN pain #10 tabs 08/25/23 08/31/23 08/31/23 Rx mg tablet ondansetron HCl 4 mg tablet 4 mg PO Q6H PRN nausea and 08/25/23 08/31/23 Unknown Rx vomiting #20 tabs Allergies Allergy/AdvReac Type Severity Reaction Status Date / Time No Known Allergies Allergy Verified 08/29/23 23:13 PFSH Acute 2 PFSH: Medical History Peripheral neuropathy Type 2 diabetes mellitus DVT (deep venous thrombosis) Onychomycosis due to dermatophyte Lower extremity edema Vitals/I&O/Wt Last Vital Signs Temp 99.0 F 08/31/23 16:20 Pulse 77 08/31/23 16:20 Resp 18 08/31/23 16:20 BP 142/89 08/31/23 16:20 Pulse Ox 97 08/31/23 16:20 O2 Del Method Room Air 08/31/23 16:20 08/31/23 08/31/23 08/31/23 06:59 14:59 22:59 Intake Total 1050 / 1050 Balance 1050 / 1050 Weight last 48 hrs Weight 65.771 kg Physical Exam 2 Narrative: NAD at time of exam. Patient appears well-nourished and well-hydrated HEENT head is normocephalic atraumatic pupils equal and reactive to light and accommodation extraocular muscles are intact there is no scleral icterus nasal pharyngeal mucosa moist and pink without erythema or exudate. Neck is supple no JVD carotid bruits or lymphadenopathy Heart: Regular rate and rhythm normal S1-S2 without loud murmur Lungs: Clear to auscultation without wheezes rales or rhonchi Abdomen: Deferred due to severe pain and multiple previous exams by other physicians and extenders. Extremities no clubbing cyanosis or edema Data 08/31/23 09:59 08/31/23 09:59 A&P Assessment and plan (1) Hypertension: Will continue losartan acute dose in the morning. Qualifiers: Hypertension type: primary hypertension Qualified Code(s): I10 - Essential (primary) hypertension (2) Type 2 diabetes mellitus: With patient on clear liquid diet will hold his oral medications at this time. Qualifiers: Diabetes mellitus half-way insulin use: without long lines operator use Diabetes mellitus complication status: without complication Qualified Code(s): E11.9 - Type 2 diabetes mellitus without complications (3) Chronic anticoagulation: Patient has not taken his Eliquis dose since yesterday evening and will continue to hold. (4) Hypercholesterolemia: Hold statin this hospitalization Plan Patient with chronic diabetes mellitus and hypertension that has been well- controlled on oral medications. No issues at this time. Will follow with surgical attending. Consult Attestations 2 Medical Necessity Statement: Per attending physician Coding Level of Care Code Acute Code for g Fwd Diagnoses Primary hypertension I10 Hypertension type: primary hypertension Type 2 diabetes mellitus without complication, without long-term current use of insulin E11.9 Diabetes mellitus long lines operator insulin use: without half-way use Diabetes mellitus complication status: without complication Chronic anticoagulation Z79.01 Hypercholesterolemia E78.00
[2023-08-31] MEDS: lactated ringers 1,000 ML 100 ML IV (17:00)
[2023-08-31] MEDS: dorzolamide/timolol Op Soln 10 mL Btl 1 DROP EYE-BOTH (17:50)
[2023-09-01] VITALS (10 sets, daily range): BP systolic 140–185; BP diastolic 76–99; PULSE 82–96; RESP 16–19; TEMP 36.6–38; O2SAT 94–97
[2023-09-01] MEDS: morphine 4 mg/mL SDV 1 mL IVP ×4 (01:15→17:57)
[2023-09-01] MEDS: piperacillin-tazobactam 3.375 GM in sodium chloride 0.9% (plus) 50 ML IV ×3 (01:41→17:56)
[2023-09-01] MEDS: lactated ringers 1,000 ML 100 ML IV ×3 (01:42→21:05)
[2023-09-01] MEDS: ketorolac 30 mg/mL INJ 15 MG IVP ×4 (03:50→21:05)
[2023-09-01 05:14] LABS: Basophils % 0.2 %; Eosinophils # 0.1 10^3/uL (0.0-0.8); Eosinophils % 0.6 %; Hematocrit 36.3 % (37-53); Lymphocytes # 0.8 10^3/uL (0.8-4.8); Lymphocytes % 6.8 %; Mean Corpuscular HGB Conc 35.5 g/dL (30-55); Mean Corpuscular Hemoglobin 31.5 pg (27-33); Mean Corpuscular Volume 88.5 fl (82-101); Mean Platelet Volume 9.2 fL (7.4-10.4); Monocytes # 1.8 10^3/uL (0.2-0.9); Monocytes % 15.9 %; Neutrophils # 8.69 10^3/uL (1.8-7.7); Neutrophils % 76.2 %; Nucleated Red Blood Cells % 0 %; Platelet Count 186 10^3/cmm (157-399); Red Cell Distribution Width 12.1 % (12.1-15.1); White Blood Count 11.39 10^3/uL (3.29-11.43)
[2023-09-01] MEDS: losartan 50 mg Tablet 100 MG PO (05:28)
[2023-09-01 05:31] LABS: Alanine Aminotransferase 17 U/L (0-41); Albumin Level 3.4 g/dL (3.5-5.2); Alkaline Phosphatase 80 U/L (40-130); Anion Gap 14.8 (5-19); Aspartate Amino Transferase 16 U/L (0-40); Blood Urea Nitrogen 8 mg/dL (8-23); Calcium 8.4 mg/dL (8.5-10.5); Carbon Dioxide 21 mmol/L (22-29); Chloride 99 mmol/L (98-107); Creatinine Clr Calc Pharmacy 77.3255; Globulin 3.2 g/dL (1.3-4.6); Glucose 255 mg/dL (65-115); Osmolality Calculated 279 mOsm/kg (285-295); Potassium 3.8 mmol/L (3.5-5.1); Sodium 131 mmol/L (136-145); Total Bilirubin 1.4 mg/dL (0.15-1.2); Total Protein 6.6 g/dL (6.6-8.7)
--- NOTE | 2023-09-01 06:51 | PM.PN ---
Subjective Subjective: This is a 73-year-old male hospital day 1 after admission for acute cholecystitis. Patient doing well overnight, complains of pain in the right upper quadrant but is improved compared to yesterday. No other significant symptoms. Pain radiation is to the back. Vitals/I&O/Wt Last Vital Signs Temp 98.7 F 09/01/23 04:14 Pulse 92 09/01/23 04:14 Resp 16 09/01/23 06:08 BP 160/99 09/01/23 05:28 Pulse Ox 97 09/01/23 04:14 O2 Del Method Room Air 08/31/23 16:20 08/31/23 08/31/23 09/01/23 14:59 22:59 06:59 Intake Total 1820 / 1820 920 / 2740 Output Total 350 / 350 400 / 750 Balance 1470 / 1470 520 / 1990 Weight last 48 hrs Weight 160 lb Weight 145 lb Physical Exam GI: OTHER: Abdomen is soft, minimally tender in the right upper quadrant, nondistended. Data 09/01/23 04:55 09/01/23 04:55 A&P Assessment and plan (1) Acute cholecystitis: Plan After a complete history and physical examination and review of all available clinical data the following is my assessment. Patient is showing adequate hospital course after initiation of IV antibiotics and fluids with clinical improvement of his acute cholecystitis. His white count has gone down to normal levels. Direct bilirubin is 0.6 and total bilirubin has remained stable. I have discussed with the patient that the best alternative for him will be to keep him until tomorrow to wait for the anticoagulation to wear off and then proceed with laparoscopic cholecystectomy to prevent recurrent symptoms in the future. I have explained to the patient that I Discussed his case with my senior electrical design engineer Dr. Boswell who has kindly agreed to do the operation as I will be out of town starting tomorrow. Patient agrees with this plan. For today he will continue to ambulate, we will continue on current control clear liquid diet and antibiotic therapy. We will continue to hold anticoagulation. Attestations Medical Necessity Statement*: Anticipated discharge Wednesday after laparoscopic cholecystectomy tomorrow Coding Level of Care Code Acute Code for [facility] Diagnoses Acute cholecystitis K81.0
[2023-09-01] MEDS: dorzolamide/timolol Op Soln 10 mL Btl 1 DROP EYE-BOTH ×2 (08:59→17:56)
[2023-09-01 10:45] LABS: Glucose Point of Care 402 mg/dL (70-110)
[2023-09-01] MEDS: insulin lispro 100 unit/1 mL SUBCUT ×3 (11:18→21:04)
--- NOTE | 2023-09-01 12:05 | P.PN_ITS ---
Subjective 2 Subjective: Patient still having pain. But states he was just given something that improved the pain Vitals/I&O/Wt Last Vital Signs Temp 97.8 F 09/01/23 11:47 Pulse 82 09/01/23 11:47 Resp 16 09/01/23 11:47 BP 169/93 09/01/23 11:47 Pulse Ox 94 09/01/23 11:47 O2 Del Method Room Air 09/01/23 11:47 08/31/23 09/01/23 09/01/23 22:59 06:59 14:59 Intake Total 1820 / 1820 920 / 2740 1360 / 1360 Output Total 350 / 350 400 / 750 500 / 500 Balance 1470 / 1470 520 / 1990 860 / 860 Weight last 48 hrs Weight 72.575 kg Weight 65.771 kg Physical Exam 2 Narrative: Alert and oriented. Heart regular normal S1-S2 Lungs clear to auscultation Abdomen soft tender right upper quadrant no rebound or significant guarding Extremities no clubbing cyanosis or edema Data 09/01/23 04:55 09/01/23 04:55 A&P Assessment and plan (1) Hypertension: Blood pressure is elevated despite being back on losartan this morning. Ordered hydralazine 50 mg every 6 hours as needed blood pressure greater than 160/110 Qualifiers: Hypertension type: primary hypertension Qualified Code(s): I10 - Essential (primary) hypertension (2) Type 2 diabetes mellitus: Blood sugars are elevated off oral medications we will start sliding scale insulin for correction Qualifiers: Diabetes mellitus meterman insulin use: without prison use Diabetes mellitus complication status: without complication Qualified Code(s): E11.9 - Type 2 diabetes mellitus without complications (3) Chronic anticoagulation: Patient has not taken his Eliquis dose since08/29. (4) Hypercholesterolemia: Hold statin this hospitalization Attestations 2 Medical Necessity Statement*: Per attending Coding Level of Care Code Acute Code for [facility] Diagnoses Primary hypertension I10 Hypertension type: primary hypertension Type 2 diabetes mellitus without complication, without long-term current use of insulin E11.9 Diabetes mellitus meterman insulin use: without meterman use Diabetes mellitus complication status: without complication Chronic anticoagulation Z79.01 Hypercholesterolemia E78.00
[2023-09-01] MEDS: hyDRALAzine 50 mg Tablet PO (12:22)
--- NOTE | 2023-09-01 12:25 | PC.NURSE ---
This nurse gave 50mg PO hydralazine for BP of 169/93.
--- NOTE | 2023-09-01 15:51 | PC.NURSE ---
Patient states he is in a significant amount of pain. His vital signs are trending upward. 173/95 BP and temperature of 100.4. This nurse contacted the attending physician. Physician recommended a consult to surgeon on an earlier surgical plan. Attempted to consult surgeon at 1550 with no answer.
[2023-09-01 16:26] LABS: Glucose Point of Care 171 mg/dL (70-110)
[2023-09-01 20:36] LABS: Glucose Point of Care 290 mg/dL (70-110)
[2023-09-02] VITALS (26 sets, daily range): BP systolic 141–184; BP diastolic 75–108; PULSE 72–103; RESP 14–18; TEMP 36.6–37.5; O2SAT 95–100
[2023-09-02] MEDS: morphine 4 mg/mL SDV 1 mL IVP ×2 (00:01→08:28)
[2023-09-02] MEDS: piperacillin-tazobactam 3.375 GM in sodium chloride 0.9% (plus) 50 ML IV ×3 (03:01→18:11)
[2023-09-02] MEDS: ketorolac 30 mg/mL INJ 15 MG IVP ×3 (03:01→21:17)
[2023-09-02 05:04] LABS: Basophils % 0.2 %; Eosinophils # 0.1 10^3/uL (0.0-0.8); Eosinophils % 0.5 %; Hematocrit 39.6 % (37-53); Lymphocytes # 0.7 10^3/uL (0.8-4.8); Lymphocytes % 4.6 %; Mean Corpuscular HGB Conc 35.4 g/dL (30-55); Mean Corpuscular Hemoglobin 31.6 pg (27-33); Mean Corpuscular Volume 89.4 fl (82-101); Mean Platelet Volume 9.2 fL (7.4-10.4); Monocytes # 1.8 10^3/uL (0.2-0.9); Monocytes % 12.1 %; Neutrophils % 82.2 %; Nucleated Red Blood Cells % 0 %; Platelet Count 194 10^3/cmm (157-399); Red Blood Count 4.43 10^6/uL (3.85-5.65); White Blood Count 15.08 10^3/uL (3.29-11.43)
[2023-09-02] MEDS: losartan 50 mg Tablet 100 MG PO (05:20)
[2023-09-02 05:22] LABS: Alanine Aminotransferase 26 U/L (0-41); Albumin Level 3.2 g/dL (3.5-5.2); Alkaline Phosphatase 100 U/L (40-130); Globulin 3.3 g/dL (1.3-4.6); Total Bilirubin 1.5 mg/dL (0.15-1.2); Total Protein 6.5 g/dL (6.6-8.7)
[2023-09-02 05:28] LABS: Aspartate Amino Transferase 24 U/L (0-40)
[2023-09-02 06:34] LABS: Glucose Point of Care 266 mg/dL (70-110)
[2023-09-02] MEDS: insulin lispro 100 unit/1 mL SUBCUT ×3 (08:10→20:52)
[2023-09-02] MEDS: lactated ringers 1,000 ML 100 ML IV (08:11)
[2023-09-02] MEDS: dorzolamide/timolol Op Soln 10 mL Btl 1 DROP EYE-BOTH ×2 (08:15→18:42)
--- NOTE | 2023-09-02 11:20 | PC.NURSE ---
Pt transported to Pre-op at 1122 via wheelchair by FRANCK Cano.
--- NOTE | 2023-09-02 12:03 | P.ANESASSM_ITS ---
Pre-Anesthetic Assessment Height/Weight: Height 1.63 m Weight 65.374 kg Temp Pulse Resp BP Pulse Ox O2 Del Method 99.2 F 92 18 172/108 97 Room Air 09/02/23 11:09/02/23 11:09/02/23 11:31 09/02/23 11:31 09/02/23 11:31 09/02/23 11:31 Operation Date: 09/02/23 14:05 Proposed Procedures p Laparoscopic Cholecystectomy(Not Applicable) - Jorge Boswell DO Operation Date: 09/02/23 15:15 Proposed Procedures p Laparoscopic Cholecystectomy(Not Applicable) - Jorge Boswell DO Familial anesthetic complications: None Was Beta Fitz taken within 24 hours: N/A Was Clonidine taken within 24 hours: N/A Last intake: Intake Last Liquid Date 09/01/23 Last Liquid Time 19:00 Last Solid Date 09/01/23 Last Solid Time 10:00 Social No alcohol and No tobacco Exam alert, oriented x 3, clear to auscultation bilaterally and regular rate & rhythm Airway Mallampati: Class III Dentition: full Pulmonary Sleep Apnea CV/HEM Deep Vein Thrombosis (occurred while being sedentary - on eliquis) and Hypertension Metabolic Diabetes Mellitus and Hyperlipidemia Anesthetic Plan ASA status: 3 Anesthesia: General Risk of > 500 ml blood loss (7ml/kg in children): No Medications/Allergies Home Medications Medication Instructions Recorded Confirmed Last Taken Type dorzolamide 22.3 mg-timolol 6.8 1 drp ophthalmic (eye) BID 06/17/23 08/31/23 08/30/23 History mg/mL eye drops glipizide 10 mg tablet, extended 20 mg PO QAM 06/17/23 08/31/23 08/30/23 History release 24 hr losartan 100 mg tablet 100 mg PO QAM 06/17/23 08/31/23 08/30/23 History simvastatin 20 mg tablet 20 mg PO BEDTIME 06/17/23 08/31/23 08/30/23 History tamsulosin 0.4 mg capsule 0.4 mg PO QAM 06/17/23 08/31/23 08/30/23 History apixaban 5 mg tablet (Eliquis) 5 mg PO BID #120 tabs 06/20/23 08/31/23 08/30/23 Rx cyanocobalamin (vitamin B-12) 1,000 mcg PO DAILY #90 tabs 06/20/23 08/31/23 08/30/23 Rx 1,000 mcg tablet magnesium 200 mg tablet 200 mg PO DAILY #30 tabs 06/20/23 08/31/23 08/30/23 Rx metformin 500 mg tablet,extended 1,000 mg PO BID 06/20/23 08/31/23 08/30/23 History release 24 hr diabetic shoes with 3 inserts #1 ea 06/29/23 08/31/23 Unknown Rx hydrocodone 5 mg-acetaminophen 325 1 tab PO Q6H PRN pain #10 tabs 08/25/23 08/31/23 08/31/23 Rx mg tablet ondansetron HCl 4 mg tablet 4 mg PO Q6H PRN nausea and 08/25/23 08/31/23 Unknown Rx vomiting #20 tabs Allergies Allergy/AdvReac Type Severity Reaction Status Date / Time No Known Allergies Allergy Verified 08/29/23 23:13 Current Medications Generic Name Dose Route Start Last Admin Trade Name Freq PRN Reason Stop Dose Admin Dorzolamide/Timolol 1 drop 08/31/23 18:00 09/02/23 08:15 Dorzolamide/Timolol Op Soln 10 Ml Btl EYE-BOTH 1 drop BID URSULA Administration Hydralazine HCl 50 mg 09/01/23 12:00 09/01/23 12:22 Hydralazine 50 Mg Tablet PO 50 mg QID PRN Administration HYPERTENSION Lactated Ringer's 1,000 mls @ 100 mls/hr 08/31/23 16:00 09/02/23 08:11 Lactated Ringers IV 100 mls/hr .Q10H URSULA Administration Piperacillin Sod/Tazobactam 50 mls @ 12.5 mls/hr 08/31/23 18:30 09/02/23 07:11 Sod 3.375 gm/ Sodium Chloride IV Infused Q8H URSULA Infusion Protocol Insulin Human Lispro 0 unit 09/01/23 12:00 09/02/23 08:10 Insulin Lispro 100 Unit/1 Ml SUBCUT 10 unit TIDWM URSULA Administration Protocol Insulin Human Lispro 0 unit 09/01/23 21:00 09/01/23 21:04 Insulin Lispro 100 Unit/1 Ml SUBCUT 5 unit BEDTIME URSULA Administration Protocol Ketorolac Tromethamine 15 mg 08/31/23 16:00 09/02/23 11:09 Ketorolac 30 Mg/Ml Inj IVP 09/05/23 15:59 15 mg Q6H URSULA Administration Losartan Potassium 100 mg 09/01/23 06:00 09/02/23 05:20 Losartan 50 Mg Tablet PO 100 mg QAM URSULA Administration Morphine Sulfate 4 mg 08/31/23 16:31 09/02/23 08:28 Morphine 4 Mg/Ml Sdv 1 Ml IVP 4 mg Q4H PRN Administration SEVERE PAIN PFSH Anesthesia Medical History Peripheral neuropathy Type 2 diabetes mellitus DVT (deep venous thrombosis) Onychomycosis due to dermatophyte Lower extremity edema Data Anesthesia 09/02/23 04:53 09/01/23 04:55 Short CBC 09/01/23 09/02/23 Range/Units 04:55 04:53 WBC 11.39 15.08 H (3.29-11.43) 10^3/uL Hgb 12.90 14.00 (11.27-16.99) g/dL Hct 36.3 L 39.6 (37-53) % MCV 88.5 89.4 (82-101) fl Plt Count 186 194 (157-399) 10^3/cmm Neut % (Auto) 76.2 82.2 % Neut # (Auto) 8.69 H 12.40 H (1.8-7.7) 10^3/uL BMP 09/01/23 04:55 Sodium 131 L Potassium 3.8 Chloride 99 Carbon Dioxide 21 L BUN 8 Creatinine 0.6 L Glucose 255 H Calcium 8.4 L Liver Function 09/01/23 09/02/23 Range/Units 04:55 04:53 Total Bilirubin 1.4 H 1.5 H (0.15-1.2) mg/dL Direct Bilirubin 0.60 H 0.80 H (0.00-0.30) mg/dL AST 16 24 (0-40) U/L ALT 17 26 (0-41) U/L Alkaline Phosphatase 80 100 (40-130) U/L Albumin 3.4 L 3.2 L (3.5-5.2) g/dL Cardiac Studies: 2 Echocardiogram 06/20/23
--- NOTE | 2023-09-02 13:00 | P.PN_ITS ---
Vitals/I&O/Wt Last Vital Signs Temp 99.2 F 09/02/23 11:31 Pulse 92 09/02/23 11:31 Resp 18 09/02/23 11:31 BP 172/108 09/02/23 11:31 Pulse Ox 97 09/02/23 11:31 O2 Del Method Room Air 09/02/23 11:31 09/01/23 09/02/23 09/02/23 22:59 06:59 14:59 Intake Total 1345 / 3115 360 / 3475 1050 / 1050 Output Total 2400 / 3750 575 / 575 Balance 1345 / 1765 -2040 / -275 475 / 475 Weight last 48 hrs Weight 144 lb 2 oz Weight 160 lb Data 09/02/23 04:53 09/01/23 04:55 A&P Assessment and plan (1) Acute cholecystitis: (2) Hyperbilirubinemia: Plan Laparoscopic cholecystectomy with intraoperative cholangiogram The risks and benefits of the procedure, including but not limited to, bleeding, infection, scar, numbness, pain, damage to surrounding structures, damage to common bile duct requiring additional surgery, conversion to an open procedure, were explained to the patient. He is understanding of the risks and wishes to proceed. He will require transfer for ERCP if there is choledocholithiasis Attestations 2 Medical Necessity Statement*: Patient requires at least 1 more night in the hospital for recovery and antibiotics after laparoscopic cholecystectomy Coding Level of Care Code Acute Code for [facility] Diagnoses Acute cholecystitis K81.0 Hyperbilirubinemia E80.6
[2023-09-02] MEDS: iohexol 300 mg/mL 50 mL Btl XX (13:35)
[2023-09-02] MEDS: lidocaine-epi 2% PF 1:200,000 20 mL SDV XX (13:35)
--- NOTE | 2023-09-02 14:55 | PM.OP ---
Operative Report Date of procedure: September 02, 2023 Pre-op diagnosis: Acute calculus cholecystitis Hyperbilirubinemia Post-op diagnosis: other Post-op diagnosis: Acute calculus and gangrenous cholecystitis Hyperbilirubinemia Procedure done: Laparoscopic cholecystectomy Implants: 19 [place] Vinny drain Specimens removed/disposition: Gallbladder Surgeon: Jorge Boswell DO Anesthesia: General and Local Estimated blood loss (mL): 5 Complications: None apparent Findings: Gangrenous cholecystitis Small, shrunken liver Intrahepatic gallbladder Brief History: This very pleasant 73-year-old gentleman who recently had a DVT and is on Eliquis presented to the hospital with acute on chronic abdominal pain. He was diagnosed with acute calculus cholecystitis. History with antibiotics and his Eliquis was held for 48 hours. His bilirubin began to go up. Laparoscopic cholecystectomy with intraoperative cholangiogram was indicated. The risks and benefits were explained and documented. Procedure: Patient was wheeled into the operative room and placed on the OR table in a supine position. Abdomen was inspected prepped and draped in usual sterile fashion. Time-out was performed and all present were in agreement. A 15 blade scalp was used to make a stab incision in the left upper quadrant and intra-abdominal insufflation was achieved using a Veress needle. After localizing the tissue incisions were made and a 5 millimeter trocar was placed into the umbilicus as well as 2 in the right upper quadrant. A 12 millimeter trocar was placed in the epigastrium. The liver was very small and the inferior portion was at the ninth rib. There was gangrenous area was at the gallbladder fundus. Gallbladder was grasped and elevated. There were thick dense adhesions to the gallbladder. The triangle of Calot was carefully dissected using blunt dissection and electrocautery. The gallbladder was also gangrenous near the cystic duct. The cystic artery was identified and bifurcated. Further dissection of the triangle of Calot did not identify any cystic duct. Through further meticulous dissection the distal portion of the cystic duct was identified and was gangrenous this was grasped and more duct easily ripped off. I was able to dissect out a small distance of distal cystic duct and put 1 12 mm clip across that. The cystic artery was then doubly clipped and ligated. The gallbladder was then removed from the liver bed using electrocautery. The gallbladder was removed from the abdomen using an Endo-Catch bag through the epigastric incision. Gallbladder was intrahepatic. The liver bed was inspected and no bleeding was seen. The abdomen was irrigated and suctioned. A 19 [place] Vinny drain was then placed through the right upper quadrant and into Morison's pouch. This was sewn into place with 3-0 silk. All ports were removed. Skin was washed and dried. Incisions were closed with 4-0 Monocryl in a subcuticular interrupted fashion. Skin glue was applied. Patient tolerated the procedure well.
[2023-09-02] MEDS: ondansetron 2 mg/ML SDV 2 mL 4 MG IVP ×2 (15:45→15:50)
--- NOTE | 2023-09-02 16:34 | SUR.PHASEI ---
1520 SCD pump applied to SCDs. Pump is on and working.
[2023-09-02 17:21] LABS: Glucose Point of Care 265 mg/dL (70-110)
[2023-09-02] MEDS: heparin 5,000 unit/mL INJ 1 mL 5000 UNIT SUBCUT (17:52)
[2023-09-02] MEDS: sodium chloride 0.9% 1,000 ML 125 ML IV (17:52)
[2023-09-02 20:23] LABS: Glucose Point of Care 242 mg/dL (70-110)
[2023-09-03] MEDS: hyDRALAzine 50 mg Tablet PO
[2023-09-03] MEDS: sodium chloride 0.9% 1,000 ML 125 ML IV (01:45)
[2023-09-03] MEDS: piperacillin-tazobactam 3.375 GM in sodium chloride 0.9% (plus) 50 ML IV (01:45)
[2023-09-03] MEDS: ketorolac 30 mg/mL INJ 15 MG IVP (03:32)
[2023-09-03 05:14] VITALS: BP 170/96
[2023-09-03] MEDS: losartan 50 mg Tablet 100 MG PO (05:14)
[2023-09-03] MEDS: heparin 5,000 unit/mL INJ 1 mL 5000 UNIT SUBCUT (05:14)
[2023-09-03 05:23] LABS: Basophils % 0.1 %; Hematocrit 35.5 % (37-53); Lymphocytes # 0.5 10^3/uL (0.8-4.8); Mean Corpuscular HGB Conc 35.2 g/dL (30-55); Mean Corpuscular Hemoglobin 31.3 pg (27-33); Mean Corpuscular Volume 88.8 fl (82-101); Mean Platelet Volume 9.5 fL (7.4-10.4); Monocytes # 0.7 10^3/uL (0.2-0.9); Monocytes % 7.5 %; Nucleated Red Blood Cells % 0 %; Platelet Count 226 10^3/cmm (157-399); Red Cell Distribution Width 12.1 % (12.1-15.1); White Blood Count 8.96 10^3/uL (3.29-11.43)
[2023-09-03 05:27] VITALS: PULSE 96
[2023-09-03 05:39] LABS: Alanine Aminotransferase 62 U/L (0-41); Alkaline Phosphatase 104 U/L (40-130); Anion Gap 15.8 (5-19); Aspartate Amino Transferase 74 U/L (0-40); Blood Urea Nitrogen 14 mg/dL (8-23); Calcium 8.2 mg/dL (8.5-10.5); Carbon Dioxide 20 mmol/L (22-29); Chloride 105 mmol/L (98-107); Creatinine Clr Calc Pharmacy 77.1353; Globulin 2.8 g/dL (1.3-4.6); Glucose 235 mg/dL (65-115); Osmolality Calculated 292 mOsm/kg (285-295); Potassium 3.8 mmol/L (3.5-5.1); Sodium 137 mmol/L (136-145); Total Bilirubin 0.7 mg/dL (0.15-1.2); Total Protein 5.8 g/dL (6.6-8.7)
[2023-09-03 06:25] LABS: Glucose Point of Care 202 mg/dL (70-110)
[2023-09-03 07:47] VITALS: BP 143/83; PULSE 90; O2SAT 100
[2023-09-03] MEDS: insulin lispro 100 unit/1 mL SUBCUT (07:47)
--- NOTE | 2023-09-03 08:23 | P.DS_ITS ---
Discharge Providers Date of Admission: 08/31/23 14:45 Date of Discharge: September 03, 2023 Attending Provider at Admission: Raul Larson MD Attending Provider at Discharge: Raul Larson MD Consults: Dr. Velásquez, hospitalist Primary Care Provider: Dominic Car MD Diagnoses at Discharge Discharge Diagnosis (1) Acute cholecystitis: Status: Acute (2) Hyperbilirubinemia: Status: Acute Reason for Visit Reason for Visit: abd pain Hospital Course Hospital Course This very pleasant 73-year-old gentleman who presented to the hospital with abdominal pain. He was diagnosed with acute calculus cholecystitis. Unfortunately he recently had a DVT and was on Eliquis. His Eliquis was held for 48 hours and then he underwent laparoscopic cholecystectomy. He was found to have a gangrenous gallbladder. The next day he was feeling much better, his bilirubin had gone down and did drain placed was serosanguineous. He was disc harged home in good condition with pain medicine and antibiotics Physical Exam Narrative: General : Patient is well developed , no acute distress, oriented x3 Head : Normal cephalic, a-traumatic. Ears : Pinnae and external canal are normal. Hearing is normal. Eyes : PERRLA, Sclera and injection are normal. No conjunctival discharge. Nose : Mucous membranes are without erythema. Throat : buccal mucosa is normal, gums are without significant recession or hypertrophy. Lungs : Equal chest rise bilaterally, no use of accessory muscles, trachea is midline. Cor : Rate and rhythm are normal. Abdomen : Soft, mild distention, appropriately tender, drain serosanguineous, no g/r/m Extremities : No edema, no cyanosis or clubbing, dorsalis pedis pulses are present bilaterally, non-tender to palpation of calves. Upper extremities are normal bilaterally. Back : non-tender to palpation, no CVA tenderness. Neuro : CN II - XII intact, Upper and lower extremities have equal and full strength Discharge Data Studies Completed and Pending Completed Studies During Hospitalization Category Date Time Status CT abdomen pelvis w con* [id number] Stat Cat Scan 08/31/23 11:28 Completed US gall bladder [id number] Stat Ultrasound 08/31/23 10:22 Completed Pending at discharge Category Date Time Status BMP [Basic Metabolic Panel] AM LABS Lab 09/04/23 04:00 Ordered BMP [Basic Metabolic Panel] AM LABS Lab 09/05/23 04:00 Ordered CBC Auto Diff [Complete Blood Count w/Auto] AM LABS Lab 09/04/23 04:00 Ordered CBC Auto Diff [Complete Blood Count w/Auto] AM LABS Lab 09/05/23 04:00 Ordered LFT [Liver Panel] AM LABS Lab 09/04/23 04:00 Ordered LFT [Liver Panel] AM LABS Lab 09/05/23 04:00 Ordered Pathology: Surgical [PTH] Routine Pth 09/02/23 14:57 Ordered Laboratory Results WBC 8.96 10^3/uL (3.29-11.43) 09/03/23 05:01 RBC 4.00 10^6/uL (3.85-5.65) 09/03/23 05:01 Hgb 12.50 g/dL (11.27-16.99) 09/03/23 05:01 Hct 35.5 % (37-53) L 09/03/23 05:01 MCV 88.8 fl (82-101) 09/03/23 05:01 MCH 31.3 pg (27-33) 09/03/23 05:01 MCHC 35.2 g/dL (30-55) 09/03/23 05:01 RDW 12.1 % (12.1-15.1) 09/03/23 05:01 Plt Count 226 10^3/cmm (157-399) 09/03/23 05:01 MPV 9.5 fL (7.4-10.4) 09/03/23 05:01 Neut % (Auto) 86.0 % 09/03/23 05:01 Lymph % (Auto) 6.0 % 09/03/23 05:01 Dickenson % (Auto) 7.5 % 09/03/23 05:01 Eos % (Auto) 0.0 % 09/03/23 05:01 Baso % (Auto) 0.1 % 09/03/23 05:01 Neut # (Auto) 7.70 10^3/uL (1.8-7.7) 09/03/23 05:01 Lymph # (Auto) 0.5 10^3/uL (0.8-4.8) L 09/03/23 05:01 Dickenson # (Auto) 0.7 10^3/uL (0.2-0.9) 09/03/23 05:01 Eos # (Auto) 0.0 10^3/uL (0.0-0.8) 09/03/23 05:01 Baso # (Auto) 0.0 10^3/uL (0.0-0.1) 09/03/23 05:01 Nucleated RBC % (auto) 0 % 09/03/23 05:01 Nucleated RBCs # 0.0 /100WBC 09/03/23 05:01 Sodium 137 mmol/L (136-145) 09/03/23 05:01 Potassium 3.8 mmol/L (3.5-5.1) 09/03/23 05:01 Chloride 105 mmol/L (98-107) 09/03/23 05:01 Carbon Dioxide 20 mmol/L (22-29) L 09/03/23 05:01 Anion Gap 15.8 (5-19) 09/03/23 05:01 BUN 14 mg/dL (8-23) 09/03/23 05:01 Creatinine 0.7 mg/dL (0.7-1.2) 09/03/23 05:01 GFR Calculation Not Reportable 09/03/23 05:01 Glucose 235 mg/dL (65-115) H 09/03/23 05:01 POC Glucose 202 mg/dL (70-110) H 09/03/23 06:22 Calculated Osmolality 292 mOsm/kg (285-295) 09/03/23 05:01 Calcium 8.2 mg/dL (8.5-10.5) L 09/03/23 05:01 Total Bilirubin 0.7 mg/dL (0.15-1.2) 09/03/23 05:01 Direct Bilirubin 0.50 mg/dL (0.00-0.30) H 09/03/23 05:01 AST 74 U/L (0-40) H 09/03/23 05:01 ALT 62 U/L (0-41) H 09/03/23 05:01 Alkaline Phosphatase 104 U/L (40-130) 09/03/23 05:01 C-Reactive Protein 58.4 mg/L (0.0-4.9) H 08/31/23 09:59 Total Protein 5.8 g/dL (6.6-8.7) L 09/03/23 05:01 Albumin 3.0 g/dL (3.5-5.2) L 09/03/23 05:01 Globulin 2.8 g/dL (1.3-4.6) 09/03/23 05:01 Lipase 37 U/L (13-60) 08/31/23 09:59 Urine Color Yellow (Yellow) 08/31/23 10:53 Urine Appearance Clear (CLEAR) 08/31/23 10:53 Urine pH 6 (5-7) 08/31/23 10:53 Ur Specific [place] 1.015 (1.005-1.030) 08/31/23 10:53 Urine Protein 1+ (Negative) H 08/31/23 10:53 Urine Glucose (UA) 4+ (Normal) H 08/31/23 10:53 Urine Ketones 3+ (Negative) H 08/31/23 10:53 Urine Blood Neg (Negative) 08/31/23 10:53 Urine Nitrate Negative (Negative) 08/31/23 10:53 Urine Bilirubin Neg (Negative) 08/31/23 10:53 Urine Urobilinogen Norm mg/dL (Negative) 08/31/23 10:53 Ur Leukocyte Esterase Negative (Negative) 08/31/23 10:53 Urine RBC 0-4 /hpf (0-2) H 08/31/23 10:53 Urine WBC 0-4 /hpf (0-5) H 08/31/23 10:53 Ur Squamous Epith Cells 0-4 /hpf (0-5) H 08/31/23 10:53 Amorphous Sediment Not Reportable 08/31/23 10:53 Urine Bacteria Trace /hpf (NONE) 08/31/23 10:53 Procedures Performed Laparoscopic cholecystectomy Vitals Last Vital Signs Temp 98.7 F 09/02/23 23:58 Pulse 90 09/03/23 07:47 Resp 17 09/02/23 23:58 BP 143/83 09/03/23 07:47 Pulse Ox 100 09/03/23 07:47 O2 Del Method Room Air 09/03/23 07:47 O2 Flow Rate 6 09/02/23 15:30 Discharge Plan Discharge Patient Disposition: Home Condition: Stable Prescriptions: New hydrocodone-acetaminophen 7.5-325 mg tablet 1 tab PO Q6H PRN (Reason: pain) Qty: 20 0RF Colace 100 mg capsule 100 mg PO BID Qty: 14 0RF Miralax 17 gram/dose powder 17 g PO DAILY 6 Days Qty: 119 0RF amoxicillin-pot clavulanate 875-125 mg tablet 1 tab PO BID Qty: 20 0RF Continued glipizide 10 mg tablet extended release 24hr 20 mg PO QAM simvastatin 20 mg tablet 20 mg PO BEDTIME losartan 100 mg tablet 100 mg PO QAM tamsulosin 0.4 mg capsule 0.4 mg PO QAM dorzolamide-timolol 22.3-6.8 mg/mL drops 1 drp ophthalmic (eye) BID Rx Instructions: BOTH EYES (DME) diabetic shoes with 3 inserts See Rx Instructions .Route .MEDSUPPLY Qty: 1 0RF Rx Instructions: As directed metformin 500 mg tablet extended release 24 hr 1,000 mg PO BID magnesium 200 mg tablet 200 mg PO DAILY Qty: 30 0RF cyanocobalamin (vitamin B-12) 1,000 mcg tablet 1,000 mcg PO DAILY Qty: 90 3RF ondansetron HCl 4 mg tablet 4 mg PO Q6H PRN (Reason: nausea and vomiting) Qty: 20 0RF Held Eliquis 5 mg tablet 5 mg PO BID Qty: 120 4RF Hold Instructions: Resume on 09/04/23. hydrocodone-acetaminophen 5-325 mg tablet 1 tab PO Q6H PRN (Reason: pain) Qty: 10 0RF Hold Instructions: Resume on 09/08/23. Discharge Orders: Discharge Order (Routine); Ordered 09/03/23 Ordered By: Jorge Boswell Referrals: Jorge Boswell DO [Physician] - 2 weeks Dominic Car MD [Primary Care Provider] - 4-7 days Discharge Diet: Advance as tolerated Discharge Activity: Resume usual activity Patient Instructions: Opioid Safety, Post Anesthesia Care, Pain Management Activity Restrictions/Additional Instructions: Leave bandage on over drain removal site for 48 hours and then remove. Do not soak incisions underwater for 2 weeks. Shower daily. Please do not miss any doses of your antibiotics Discharge Attestations Time Spent in Discharge Care*: less than 30 min Quality Metrics Clinical Quality Measures [ No reported AMI, CVA or VTE this stay] Coding Level of Care Code Acute Code for [facility] Fw Diagnoses Acute cholecystitis K81.0 Hyperbilirubinemia E80.6
[2023-09-03] MEDS: dorzolamide/timolol Op Soln 10 mL Btl 1 DROP EYE-BOTH (08:50)
--- NOTE | 2023-09-03 11:59 | PC.NURSE ---
Called and left message on 's phone of post op appointment of 09/20/23 at 1015.
== END 2023-09-03 11:47 | disposition home or self-care (01) | DRG 419 ==
LOC: ER 13:44 → MEDSURG 14:46
PROVIDERS: Surgery; Admitting Provider Surgery; Emergency Provider Physician Assistant; PCP Family Medicine; Visit Provider Surgery
PROC: 0FT44ZZ Resection of Gallbladder, Percutaneous Endoscopic Approach (ICD-10-PCS; CPT 47562; principal; 2023-09-02 14:05)
DX: K80.00 Calculus of gallbladder with acute cholecystitis without obstruction (principal); K82.A1 Gangrene of gallbladder in cholecystitis; E11.42 Type 2 diabetes mellitus with diabetic polyneuropathy; B35.1 Tinea unguium; E78.00 Pure hypercholesterolemia, unspecified; I10 Essential (primary) hypertension; Z86.718 Personal history of other venous thrombosis and embolism; Z79.84 Long term (current) use of oral hypoglycemic drugs
CPT/HCPCS: 36415; 36416; 74177; 76705; 80048; 80053; 80076; 81001; 82962; 83605; 83690; 85025; 86140; 88304; 96361; 96365; 96372; 96374; 96375; 96376; 99284; 99285; J0360; J1100; J1644; J1815; J1885; J2270; J2371; J2405; J2543; J2704; J2710; J3010; J3490; J7030; J7120; Q9967

== ENCOUNTER → 2023-09-07 13:28 | Outpatient (BNVA) | payer MEDICARE, OTHER, SELFPAY | PROVIDERS: PCP Family Medicine; Visit Provider Podiatrist Foot & Ankle Surgery | DX: L60.3 Nail dystrophy (principal); G62.9 Polyneuropathy, unspecified; E11.42 Type 2 diabetes mellitus with diabetic polyneuropathy; Z79.84 Long term (current) use of oral hypoglycemic drugs | CPT/HCPCS: 11056; 11721 ==

== ENCOUNTER → 2023-09-23 14:08 | Day surgery (SDC) | payer MEDICARE, OTHER, SELFPAY | LOC: OPS 09-24 16:43 | PROVIDERS: PCP Family Medicine; Visit Provider Surgery | DX: Z01.818 Encounter for other preprocedural examination (principal); K40.20 Bilateral inguinal hernia, without obstruction or gangrene, not specified as recurrent; Z90.49 Acquired absence of other specified parts of digestive tract | CPT/HCPCS: 99214 ==

== ENCOUNTER → 2023-11-22 10:18 | Outpatient (BNVA) | payer MEDICARE, OTHER, SELFPAY | PROVIDERS: PCP Family Medicine; Visit Provider Podiatrist Foot & Ankle Surgery | DX: L60.3 Nail dystrophy (principal); G62.9 Polyneuropathy, unspecified; E11.42 Type 2 diabetes mellitus with diabetic polyneuropathy; Z79.84 Long term (current) use of oral hypoglycemic drugs | CPT/HCPCS: 11721 ==

== ENCOUNTER → 2024-02-07 10:30 | Outpatient (BNVA) | payer MEDICARE, OTHER, SELFPAY | PROVIDERS: PCP Family Medicine; Visit Provider Podiatrist Foot & Ankle Surgery | DX: L60.3 Nail dystrophy (principal); G62.9 Polyneuropathy, unspecified; E11.42 Type 2 diabetes mellitus with diabetic polyneuropathy; Z79.84 Long term (current) use of oral hypoglycemic drugs | CPT/HCPCS: 11721 ==

== ENCOUNTER → 2024-04-12 10:30 | Outpatient (BNVA) | payer MEDICARE, OTHER, SELFPAY | PROVIDERS: PCP Family Medicine; Visit Provider Podiatrist Foot & Ankle Surgery | DX: L60.3 Nail dystrophy (principal); G62.9 Polyneuropathy, unspecified; L84 Corns and callosities; E11.42 Type 2 diabetes mellitus with diabetic polyneuropathy; Z79.84 Long term (current) use of oral hypoglycemic drugs | CPT/HCPCS: 11055; 11721 ==

== ENCOUNTER → 2024-06-14 10:47 | Outpatient (BNVA) | payer MEDICARE, OTHER, SELFPAY | PROVIDERS: PCP Family Medicine; Visit Provider Podiatrist Foot & Ankle Surgery | DX: L60.3 Nail dystrophy (principal); G62.9 Polyneuropathy, unspecified; L84 Corns and callosities; E11.42 Type 2 diabetes mellitus with diabetic polyneuropathy; Z79.84 Long term (current) use of oral hypoglycemic drugs | CPT/HCPCS: 11056; 11721 ==

== ENCOUNTER → 2024-08-17 10:27 | Outpatient (BNVA) | payer MEDICARE, OTHER, SELFPAY | PROVIDERS: PCP Family Medicine; Visit Provider Podiatrist Foot & Ankle Surgery | DX: E11.42 Type 2 diabetes mellitus with diabetic polyneuropathy (principal); L60.3 Nail dystrophy; L84 Corns and callosities; G62.9 Polyneuropathy, unspecified; Z79.84 Long term (current) use of oral hypoglycemic drugs | CPT/HCPCS: 11056; 11721 ==

== ENCOUNTER → 2024-10-19 10:34 | Outpatient (BNVA) | payer MEDICARE, OTHER, SELFPAY | PROVIDERS: PCP Family Medicine; Visit Provider Podiatrist Foot & Ankle Surgery | DX: E11.42 Type 2 diabetes mellitus with diabetic polyneuropathy (principal); L60.3 Nail dystrophy; L84 Corns and callosities; G62.9 Polyneuropathy, unspecified; Z79.84 Long term (current) use of oral hypoglycemic drugs | CPT/HCPCS: 11056; 11721 ==

== ENCOUNTER → 2024-12-19 09:48 | Outpatient (BNVA) | payer MEDICARE, OTHER, SELFPAY | PROVIDERS: PCP Family Medicine; Visit Provider Podiatrist Foot & Ankle Surgery | DX: E11.42 Type 2 diabetes mellitus with diabetic polyneuropathy (principal); L60.3 Nail dystrophy; L84 Corns and callosities; G62.9 Polyneuropathy, unspecified; Z79.84 Long term (current) use of oral hypoglycemic drugs | CPT/HCPCS: 11056; 11721 ==

== ENCOUNTER → 2025-02-28 09:43 | Outpatient (BNVA) | payer MEDICARE, SELFPAY | PROVIDERS: PCP Family Medicine; Visit Provider Podiatrist Foot & Ankle Surgery | DX: E11.42 Type 2 diabetes mellitus with diabetic polyneuropathy (principal); L60.3 Nail dystrophy; G62.9 Polyneuropathy, unspecified; L84 Corns and callosities; Z79.84 Long term (current) use of oral hypoglycemic drugs | CPT/HCPCS: 11721 ==

== ENCOUNTER → 2025-05-16 09:57 | Outpatient (BNVA) | payer MEDICARE, SELFPAY | PROVIDERS: PCP Family Medicine; Visit Provider Podiatrist Foot & Ankle Surgery | DX: E11.42 Type 2 diabetes mellitus with diabetic polyneuropathy (principal); L60.3 Nail dystrophy; L84 Corns and callosities; E11.8 Type 2 diabetes mellitus with unspecified complications; G62.9 Polyneuropathy, unspecified; Z79.84 Long term (current) use of oral hypoglycemic drugs | CPT/HCPCS: 11056; 11721 ==